=== PATIENT | male | born 1950 | race Caucasian/White ===

== ENCOUNTER 2016-11-30 11:02 | Outpatient (CLI) | payer OTHER ==
[~2016-11-30] VITALS: Ht 167.6 cm; Wt 69.5 kg
[2016-11-30 11:05] VITALS: BP 144/77; PULSE 88; RESP 18; Ht 167.6 cm; Wt 69.5 kg
--- NOTE | 2016-11-30 22:06 | CONS ---
Date/Time of Note Date/Time of Note DATE: 11/30/16 TIME: 21:30 Assessment/Plan Assessment/Plan Additional Assessment/Plan [facility] INITIAL INPATIENT CONSULTATION NOTE ASSESSMENT AND PLAN: A very-pleasant 65-year-old gentleman, well known to me from prior admissions since April 2016, with past medical history significant for obesity (BMI 24.7, previously 32.12 April 2016), bilateral knee and other joint pain, and hypertension, who was initially admitted to [facility] through ED on 04/07/2016 with signs and symptoms consistent with perforated viscus, s/p laparoscopic repair of perforated stomach, and ultimately unfortunately proven to be from gastric adenocarcinoma. He is doing remarkably well given his complicated course (see updated clinical summary). He is scheduled to be done with his chemo on 12/01/16. His most recent CT from Nov 2016 shows no new disease and no contraindication for surgical exploration and hopefully a subtotal, or if needed, a total gastrectomy. I explained the anatomy as well as the natural history and pathophysiology of this disease to the patient and family in detail and reviewed the reasoning behind my recommendations. Patient and family appeared to understand and wished to proceed with the plans. With above assessment, I've recommended the followin. Cont current management 2. Finish chemo course 3. Laparoscopic exploration with hopefully open gastrectomy late Dec 2016 Thank you very much for having me involved in the care of this very pleasant gentleman and his wonderful family. I will continue to follow him along with you closely and will be available to answer any questions at area code [phone]. TOTAL VISIT TIME: 45 minutes of which more than half was spent in [id number] discussion with the patient, discussions with family, as well as coordination of care between multiple physicians and providers. Disclaimer: Inadvertent spelling and grammatical errors are likely due to EHR/ dictation software use and do not reflect on the quality of delivered patient care. Also, please note that the electronic time recorded on this node does not necessarily reflect the actual time of the visit. PLACE OF SERVICE: [facility], [facility] DATE OF CONSULTATION: 11/30/2016 REASON FOR CONSULTATION: Gastric outlet obstruction REFERRING PHYSICIAN: Jarad Costa MD Dear Dr. Costa: Thank you very much for asking me to remain involved as a surgical nurse practitioner in the management of Mr. Armani Denny. UPDATED CLINICAL SUMMARY: The patient is a very pleasant 65-year-old gentleman well known to me from prior visit, with past medical history significant for obesity (BMI 32.7), bilateral knee and other joint pain, and hypertension, who was initially admitted to [facility] through ED on 04/07/2016 with 1 day history of abdominal pain associated with nausea and vomiting (4). Patient's emergency department workup included laboratory values that showed a normal white blood cell count of 9.8 and platelet count of 346, elevated creatinine at 1.25 and CO2 of 25. LFTs were normal. INR was 1.11. CT scan showed small foci of intra-abdominal free air compatible with bowel perforation. This was presumably in the region of the gastric antrum which was surrounded by some inflammatory changes and mildly enlarged lymph nodes. Underlying ulcer, gastritis or neoplasm wearing the differential. After consultation I decided to wait and not immediately operate on the patient given his normal hemodynamics and laboratory values. We were, however, sufficiently concerned for the patient's abdominal pain. On hospital day #2, the patient showed ongoing abdominal pain and elevation in white blood cell count to 17 and tachycardia. For this reason, patient underwent laparoscopic repair of perforated gastric ulcer with Sukh patch and abdominal lavage on 04/07/2016. Upper GI neg 04/11/16. Drain d/c'd 04/13/16. L hand cellulitis, improved with antimicrobial treatment and time in hospital. D/c'd home 04/20/16. Readmitted 05/02/16 with anemia. EGD x 2 showed ulcer dz and no obvious evidence for malignancy. D/c home 05/10; readmitted on 05/14 and d/c 05/16; fainted on way to see us in the office on 05/25, but neg ED w/u; readmitted for a third time since that operation on 07/15/16 for gastric outlet obstruction and GI bleeding. Ongoing issues with weight loss. Could not tolerate much oral intake. 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 EGD 07/25/16 showed small opening that made attempt at stenting possible. Started TPN 07/27/16. S/p endoscopic duodenal stent placement 07/28/16. Dx lap 08/01/16 showed no obvious evidence of widespread metastasis. Few areas biopsied and path showed no malignancy in the biopsied areas or in the cytology sample sent. Patient s/p 12 cycles of FOLFOX ending 12/01/16 (no Avastin; Her2 negative tumor). Patient developed loculated pneumothorax and empyema that was treated with Heimlich valve placement ( pathology from pleural fluid negative for malignant cells). Comorbidities: 1. Bilateral knee and other joint pain 2. Hypertension 3. Above mentioned gastric perforation 04/21 4. Above mentioned laparoscopic repair for gastric perforation 04/21 HISTORY OF PRESENT ILLNESS: Please see above summary. Today, I had a chance to visit with the patient and do a complete H&P. I also gathered some of my information through a careful review of the available data. Overall, patient reports doing well. He does not report any hematemesis or blood in the stool or urine. + flatus and BM. No reported chronic issues with constipation or diarrhea. No changes in hearing or vision, difficulty with breathing or swallowing, prior cardiopulmonary disease new skin rashes, neurologic, psychiatric, or psychologic problems. Patient does have history of joint pain, musculoskeletal disease as mentioned above. Patient described no sig abd pain. At my visit, the patient did not have any other major significant complaints. ALLERGIES: NO KNOWN DRUG ALLERGIES MEDICATIONS See EHR SOCIAL HISTORY: The patient lives with family. - Tob; - ETOH; - IVDU FAMILY HISTORY: There are no significant medical, surgical or oncologic issues in the family as reported by the patient or reflected in the chart. REVIEW OF SYSTEMS: No pertinent positives or negatives on an otherwise complete 14-point review of systems was negative. PHYSICAL EXAMINATION GENERAL: The patient appears to be a very pleasant gentleman of descent lying in bed, appearing stated age; BMI: 26.2 (previously 32.7 in April 2016) VITAL SIGNS: AVSS (please also see below) HEENT: Normocephalic and atraumatic. Extraocular muscles and hearing are grossly intact bilaterally and symmetrically. Sclerae are nonicteric. Oral cavity is clear; oral mucosa appear to be pink and moist. Dentition: fair. NECK: Supple. There is no lymphadenopathy or JVD. There is no submental, submandibular or supraclavicular lymphadenopathy. CHEST: Rises symmetrically with each breath; patient is breathing comfortably. There are no audible wheezes, rales or rhonchi on the gross exam. Heimlich valve in place. HEART: Pulse is regular and palpable on the right wrist. Capillary refill is normal. Carotid pulses are palpable bilaterally and symmetrically in the neck. EXTREMITIES: Lower extremities contain no pitting edema around the ankles bilaterally and symmetrically. ABDOMEN: Abdomen is soft, non-tender to palpation and non-distended. No evidence of ascites, organomegaly, caput medusae, engorged subcutaneous veins, or other abnormalities. There are mild peritoneal signs and guarding. SKIN: Appears to be pink and feels warm to touch. NEUROLOGIC: Awake, alert, and follows commands appropriately. LABORATORY DATA: See below IMAGING: See electronic chart. Please note that I've personally reviewed all pertinent available images and I agree in general with their overall reported findings. Consultation Date/Type/Reason Admit Date/Time Initial Consult Date Exam/Review of Systems Vital Signs Vitals Vital Signs Date Time Temp Pulse Resp B/P Pulse Ox O2 Delivery O2 Flow Rate FiO2 11/30/16 11:05 98.0 88 18 144/77 100 Room Air HELEN BRASWELL M.D. Nov 30, 2016 21:42
== END 2016-11-30 16:27 | disposition home or self-care (01) ==
LOC: HPC 11:02
PROVIDERS: ATTEND Transplant Surgery
DX: C16.9 Malignant neoplasm of stomach, unspecified (principal); M25.562 Pain in left knee; M25.561 Pain in right knee; R11.2 Nausea with vomiting, unspecified; I10 Essential (primary) hypertension; E66.9 Obesity, unspecified; Z68.32 Body mass index [BMI] 32.0-32.9, adult
CPT/HCPCS: G0463

== ENCOUNTER 2017-01-10 05:34 | Inpatient (IN) | payer OTHER ==
[2017-01-09 11:35] VITALS: BMI 24.2
[2017-01-10] VITALS (15 sets, daily range): BP systolic 115–147; BP diastolic 61–82; PULSE 7–123; RESP 10–18; Ht 167.6 cm; Wt 67.1 kg
[~2017-01-10] VITALS: Ht 167.6 cm; Wt 67.1 kg
[~2017-01-10 05:34] MED LIST: BUPIVACAINE 0.25%/EPI (SDV) 30 ML INJ INJ ONE; ONDA8TAB83 PO; PIPER-TAZO 3.375 GM IV (PMX) 100 ML IVPB ONE
[2017-01-10] MEDS ORDERED: BUPIVACAINE 0.25%/EPI (SDV) 30 ML INJ ONE (06:51)
[2017-01-10] MEDS ORDERED: EPHEDrine SULFATE 50 MG/5 ML SYG ONE ×2 (07:00→08:56)
[2017-01-10] MEDS ORDERED: ACETAMINOPHEN 1000 MG/100 ML IVPB ONE (07:00)
--- NOTE | 2017-01-10 07:27 | HPN ---
Date/Time of Note Date/Time of Note DATE: 01/10/17 TIME: 07:27 Interval H&P Admission Note Pt. seen H&P reviewed: No system changes Pt. seen H&P reviewed. No system changes (I attest that I have seen and examined the patient and reviewed the operation in detail, as well as its risks , benefits and alternatives of the operation). I attest that I have seen and examined the patient and reviewed in detail the operation, and its associated risks, benefits and alternative. I have answered all the patient's questions to the best of my ability and the patient wishes to proceed. Please refer to rest of electronic medical record for additional updates. HELEN BRASWELL M.D. Jan 10, 2017 07:27
[2017-01-10] MEDS ORDERED: ROCURONIUM 50 MG INJ ONE ×2 (07:41→11:08)
[2017-01-10] MEDS ORDERED: SUCCINYLCHOLINE CHLORIDE 100 MG/5 ML SYG IV ONE (07:41)
[2017-01-10] MEDS ORDERED: LIDOCAINE 2% (SDV) 5 ML INJ ONE (07:41)
[2017-01-10] MEDS ORDERED: PROPOFOL 20 ML ONE (07:41)
[2017-01-10] MEDS ORDERED: FENTAnyl 50 MCG/ML VIAL ONE ×2 (07:42→09:14)
[2017-01-10] MEDS ORDERED: MIDAZOLAM 1 MG/ML 2 ML INJ ONE (07:42)
[2017-01-10] MEDS ORDERED: PHENYLephrine (100 MCG/ML) 5ML SYG ONE (08:23)
[2017-01-10] MEDS ORDERED: ONDANSETRON 4 MG INJ ONE ×2 (08:36→12:46)
[2017-01-10] MEDS ORDERED: DEXAMETHASONE 4 MG/ML 1 ML INJ ONE (08:36)
[2017-01-10] MEDS ORDERED: ROPIVACAINE 0.2% 20 ML VIAL ONE ×2 (09:48→12:12)
[2017-01-10] MEDS ORDERED: HYDROmorphONE 2 MG/ML SYG ONE ×2 (10:44→12:08)
[2017-01-10] MEDS ORDERED: ALBUMIN HUMAN 5% 250 ML ONE (12:04)
[2017-01-10] MEDS ORDERED: FAMOTIDINE 20 MG INJ ONE (12:50)
[2017-01-10] MEDS ORDERED: GLYCOPYRROLATE 0.4 MG INJ ONE (12:55)
[2017-01-10] MEDS ORDERED: NEOSTIGMINE 3 MG/3 ML SYRINGE ONE (12:55)
[2017-01-10] MEDS ORDERED: ESMOLOL 10 ML ONE (13:29)
[2017-01-10] MEDS ORDERED: PROCHLORPERAZINE 10 MG INJ IV PRN (14:00)
[2017-01-10] MEDS ORDERED: NALOXONE (0.4 MG/ML) INJ IV PRN (14:00)
[2017-01-10] MEDS ORDERED: FENTAnyl 50 MCG/ML VIAL IV PRN (14:00)
[2017-01-10] MEDS ORDERED: LABETALOL HCL 20MG INJ IV PRN (14:00)
[2017-01-10] MEDS ORDERED: MEPERIDINE 25 MG INJ IV PRN (14:00)
[2017-01-10] MEDS ORDERED: ONDANSETRON 4 MG INJ IV PRN ×2 (14:00)
[2017-01-10] MEDS ORDERED: HYDROmorphONE (0.2 MG/ML) 10ML SYG IV PRN ×2 (14:00)
[2017-01-10] MEDS ORDERED: DIPHENHYDRAMINE 50 MG INJ IV PRN ×2 (14:00)
[2017-01-10] MEDS ORDERED: HYDROmorphONE 1 MG/ML SYG IV PRN ×3 (14:00→14:30)
[2017-01-10] MEDS ORDERED: hydrALAzine 20 MG INJ IV PRN (14:00)
[2017-01-10] MEDS ORDERED: DOCUSATE SODIUM 100 MG CAP PO PRN (14:30)
[2017-01-10] MEDS ORDERED: NA PHOSPHATE/BIPHOS 133 ML ENEMA PR PRN (14:30)
[2017-01-10] MEDS ORDERED: HYDROCODONE/APAP (5/325) TAB PO PRN ×2 (14:30)
[2017-01-10] MEDS ORDERED: BISACODYL 10 MG SUPP PR PRN (14:30)
[2017-01-10 14:38] LABS: ADD UMIC YES; URINE BILIRUBIN (Dip) NEGATIVE (NEGATIVE); URINE BLOOD (Dip) TRACE (NEGATIVE); URINE COLOR LT. YELLOW (YELLOW); URINE GLUCOSE (Dip) NEGATIVE (NEGATIVE); URINE KETONES (Dip) NEGATIVE (NEGATIVE); URINE LEUKOCYTE ESTERASE (Dip) 1+ (NEGATIVE); URINE NITRITE (Dip) NEGATIVE (NEGATIVE); URINE TOTAL PROTEIN (Dip) NEGATIVE (NEGATIVE); URINE UROBILINOGEN (Dip) 0.2 E.U./dL (0.1-1.0)
[2017-01-10 14:46] LABS: ADD SCAN DIFF NO
[2017-01-10 14:50] LABS: BASOPHILS % 0.2 % (0.0-2.0); HEMATOCRIT 39.4 % (42.0-52.0); HEMOGLOBIN 12.8 g/dl (14.0-18.0); LYMPHOCYTES % 6.2 % (15.0-51.0); MEAN CORPUSCULAR HEMOGLOBIN 30.1 pg (29.0-33.0); MEAN CORPUSCULAR HGB CONC 32.5 g/dl (32.0-37.0); MEAN CORPUSCULAR VOLUME 92.7 fl (82.0-101.0); MEAN PLATELET VOLUME 9.2 fl (7.4-10.4); MONOCYTE # 0.7 10^3/ul (0.3-0.9); MONOCYTES % 4.4 % (0.0-11.0); NEUTROPHIL # 13.8 10^3/ul (1.6-7.5); NEUTROPHILS % 88.7 % (39.0-77.0); PLATELET COUNT 169 10^3/UL (140-415); RED BLOOD COUNT 4.25 10^6/ul (4.70-6.10); RED CELL DISTRIBUTION WIDTH 15.1 % (11.5-14.5); WHITE BLOOD COUNT 15.6 10^3/ul (4.8-10.8)
[2017-01-10 14:58] LABS: ALBUMIN 3.3 g/dl (3.3-4.9)
[2017-01-10 14:59] LABS: INR 1.09; PROTIME 14.1 Sec (12.2-14.2); PT RATIO 1.1
[2017-01-10 15:00] LABS: PARTIAL THROMBOPLASTIN TIME 27.5 Sec (25.0-35.0)
[2017-01-10 15:01] LABS: ALBUMIN/GLOBULIN RATIO 1.17; BILIRUBIN,INDIRECT 0.3 mg/dl (0-1.1); BILIRUBIN,TOTAL 0.3 mg/dl (0.2-1.3); TOTAL PROTEIN 6.1 g/dl (6.1-8.1)
[2017-01-10 15:05] LABS: CALCIUM 8.6 mg/dl (8.4-10.2); CREATININE 0.68 mg/dl (0.61-1.24); POTASSIUM 3.8 mmol/L (3.5-5.1)
--- NOTE | 2017-01-10 15:39 | OPR ---
[facility] INPATIENT OPERATIVE NOTE PLACE OF SERVICE: [facility] DATE OF SURGERY: 01/10/17 PREOPERATIVE DIAGNOSIS: 1. Gastric malignancy, s/p neoadjuvant chemotherapy 2. Bilateral knee and other joint pain 3. Hypertension 4. Gastric perforation 04/21 5. Laparoscopic repair for gastric perforation 04/21 POSTOPERATIVE DIAGNOSIS: 1. Gastric malignancy, s/p neoadjuvant chemotherapy 2. Bilateral knee and other joint pain 3. Hypertension 4. Gastric perforation 04/21 5. Laparoscopic repair for gastric perforation 04/21 OPERATION: 1. Laparoscopic exploration with laparoscopic wedge liver biopsy x2 as well as falciform ligament biopsy. 2. Open subtotal gastrectomy. 3. Celiac artery lymph node dissection. 4. Hepatic artery lymph node biopsy. 5. Celiac artery lymph node biopsy. 6. Hepatic artery lymph node biopsy. 7. Splenic artery lymph node biopsy. 8. Abdominal lavage. 9. Omentectomy. 10. Lysis of adhesions. SURGEON: Helen Chavis M.D. PECAN CLEANER: [place] [place] ANESTHESIA: General endotracheal tube anesthesia ANESTHESIOLOGIST: Wesley Montana M.D. BRIEF SUMMARY: An otherwise uncomplicated laparoscopic exploration with biopsy, followed by radical subtotal gastrectomy was performed with findings of malignancy in distal stomach Updated Clinical Summary: The patient is a very pleasant 65-year-old gentleman well known to me from prior visit, with past medical history significant for obesity (BMI 32.7), bilateral knee and other joint pain, and hypertension, who was initially admitted to [facility] through ED on 04/07/2016 with 1 day history of abdominal pain associated with nausea and vomiting (4). Patient's emergency department workup included laboratory values that showed a normal white blood cell count of 9.8 and platelet count of 346, elevated creatinine at 1.25 and CO2 of 25. LFTs were normal. INR was 1.11. CT scan showed small foci of intra-abdominal free air compatible with bowel perforation. This was presumably in the region of the gastric antrum which was surrounded by some inflammatory changes and mildly enlarged lymph nodes. Underlying ulcer, gastritis or neoplasm wearing the differential. After consultation I decided to wait and not immediately operate on the patient given his normal hemodynamics and laboratory values. We were, however, sufficiently concerned for the patient's abdominal pain. On hospital day #2, the patient showed ongoing abdominal pain and elevation in white blood cell count to 17 and tachycardia. For this reason, patient underwent laparoscopic repair of perforated gastric ulcer with Sukh patch and abdominal lavage on 04/07/2016. Upper GI neg 04/11/16. Drain d/c'd 04/13/16. L hand cellulitis, improved with antimicrobial treatment and time in hospital. D/c'd home 04/20/16. Readmitted 05/02/16 with anemia. EGD x 2 showed ulcer dz and no obvious evidence for malignancy. D/c home 05/10; readmitted on 05/14 and d/c 05/16; fainted on way to see us in the office on 05/25, but neg ED w/u; readmitted for a third time since that operation on 07/15/16 for gastric outlet obstruction and GI bleeding. Ongoing issues with weight loss. Could not tolerate much oral intake. 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 EGD 07/25/16 showed small opening that made attempt at stenting possible. Started TPN 07/27/16. S/p endoscopic duodenal stent placement 07/28/16. Dx lap 08/01/16 showed no obvious evidence of widespread metastasis. Few areas biopsied and path showed no malignancy in the biopsied areas or in the cytology sample sent. Patient s/p 12 cycles of FOLFOX ending 12/01/16 (no Avastin; Her2 negative tumor). Patient developed loculated pneumothorax and empyema that was treated with Heimlich valve placement ( pathology from pleural fluid negative for malignant cells). . BRIEF HISTORY: A very-pleasant 65-year-old gentleman, well known to me from prior admissions since April 2016, with past medical history significant for obesity (BMI 24.7, previously 32.12 April 2016), bilateral knee and other joint pain, and hypertension, who was initially admitted to [facility] through ED on 2015 with signs and symptoms consistent with perforated viscus, s/p laparoscopic repair of perforated stomach, and ultimately unfortunately proven to be from gastric adenocarcinoma. He is doing remarkably well given his complicated course (see updated clinical summary). He is scheduled to be done with his chemo on 12/01/16. His most recent CT from Nov 2016 shows no new disease and no contraindication for surgical exploration and hopefully a subtotal, or if needed, a total gastrectomy. I explained the anatomy as well as the natural history and pathophysiology of this disease to the patient and family in detail and reviewed the reasoning behind my recommendations. After careful consideration of all the risks, benefits, and alternatives, the patient and family appeared to understand those risks and wished to proceed with surgery. For a detailed report of my consultation with patient and family, please refer to my separate consultation note. STATEMENT OF THE INFORMED CONSENT: The patient and family appeared to understand the risks of the operation to include, but not be limited to risk of postoperative pain and scar tissue, possible infection or bleeding requiring other interventions such as opening the wound, placement of drainage catheters, or other operative interventions; possible injury to surrounding to structures including bowel, bladder, bile duct, or blood vessels, or solid organs such as liver, kidney, or pancreas requiring other interventions or procedures; possible leakage of bowel from anastomotic sites or suture lines causing significant increase in morbidity and mortality and requiring multiple interventions including but not limited to, placement of drainage catheters, imaging studies, as well as operative interventions; possible other source of sepsis such as urinary tract infections or pneumonias, or other sources of potentially life threatening problems such as deep venous thrombus formation causing pulmonary embolism, myocardial arrhythmias and infarctions, and even . We also briefly discussed the potential need to receive blood products and their potential complications of blood transfusion reactions, transmission of infections, or other complications. After careful consideration of all their options, the patient and family appeared to understand and wished to proceed with surgery. OPERATIVE DETAILS: After obtaining informed consent, the patient was brought into the operating room and was placed in a normal supine position where successful general endotracheal tube anesthesia was performed. Note that an epidural was placed by the anesthesiologist as well. The patient's abdominal skin was prepped and draped in the usual sterile fashion and then we called a surgical time-out where patient's identification, date of , nature of the operation, the presence of needed equipment and any other concerns were addressed and agreed upon by all members of the operating room team. I then placed a 5 mm skin incision in the left upper quadrant and introduced a 5 mm [employer] trocar into the peritoneal space, visualizing all the layers of the abdominal wall as we entered using direct entry technique. There was no indication of any injury to underlying structures. We insufflated the abdominal cavity to a maximum pressure of 15 mmHg. Initial inspection of the abdominal cavity showed a few areas that were suspicious and needed to be biopsied. For this reason, I placed another two 5 mm trocars, one in the infraumbilical area and one in the right upper quadrant, all under direct visualization and after injection of the sites with 0.25% Marcaine with epinephrine. With our instruments in place, we had the ability to do a more full inspection of the abdominal cavity. There were some omental adhesions onto the anterior abdominal wall that we lysed using a cautery. This allowed excellent visualization of the entire abdominal cavity laparoscopically. The left lobe of the liver was already adhesed on to the area of the diaphragm and for this reason, we could see that area underneath it very well. The stomach appeared to be pliable. We could sense the presence of the stent in the pylorus. There were a few spots, 1 on segment 3 of the liver and 1 on segment 4B of the liver that appeared to be a bit suspicious. I used cold scissors to do wedge liver biopsies of both of these areas and achieved adequate hemostasis using cautery. We also had a mass in the falciform ligament which I dissected using a combination of cold scissors as well as cautery. All 3 samples were removed laparoscopically from the abdominal cavity, and we performed frozen sections on the specimens with the help of Dr. Bone from Department of pathology. Note that I scrubbed out of the case after making sure that the patient was stable and adequate hemostasis had been achieved and reviewed the slides with Dr. Bone. We both agreed that these were benign lesions corresponding to foreign giant body reactions, perhaps from the patient's time of perforation approximately a year ago. I, therefore, returned to the operating room and again found the patient to be in fair, stable condition. After scrubbing back sterilely, we removed our laparoscopic equipment and converted the operation to an open operation by placing a bilateral subcostal incision using scalpel to go through the skin and then cautery to go through the subcutaneous fat and the fascia. We then placed a Jane retractor and had excellent visualization and access to the abdominal cavity. We then performed a very meticulous exploration of the abdominal cavity with inspection of the surface of the liver as well as running the bowel from the ligament of Treitz to the ileocecal valve and inspecting the ascending, transverse, descending, and sigmoid colon into the rectum. The omentum was also inspected and the area of ligament of Treitz was then inspected. Other than the lymphadenopathy that we had seen on the CT scan right above the pancreas on the first portion of the duodenum, we did not find any other concerning evidence for metastatic disease. For this reason, I decided to go ahead with the planned operation of subtotal gastrectomy. We, therefore, used cautery to get into the gastrocolic ligament and then used LigaSure device to divide the gastrocolic ligament between the stomach and the transverse colon. We did this proximally to a suitable spot and then performed the same procedure distally. After very meticulous dissection approaching it on both ends, we were able to completely disconnect the gastrocolic ligament and separate the stomach from the transverse colon. We made sure that the middle colic artery is undisturbed. A small rent in the transverse colon mesentery was repaired using running 3-0 Vicryl suture. Other than that, we were able to completely separate in the plane between the stomach and the colon , the 2 organs. We also were able to separate the tissue that was between the stomach and the anterior aspect of the pancreas. We continued our dissection distally towards the lymph node that appeared to be malignant, but it was considered part of the specimen and that was going to be removed and dissected this completely off of the anterior aspect of the pancreas. Part of this lymph node was fairly close to the course of the gastroduodenal artery that was going over the body of the pancreas and for this reason, I used one firing of the vascular load of the TA stapler and transected the lymph node from the underlying pancreas tissue making sure that there is adequate margin left between these 2 structures. We used a clamp to clamp the specimen side and then used a 4-0 Prolene suture to achieve hemostasis on that front. At this point, we concentrated our efforts on the leonidas hepatis and gained access through the gastrohepatic ligament using cautery. We then performed meticulous dissection in order to completely separate the distal portion of the stomach from the pancreas and the leonidas hepatis region. I did gain access circumferentially around the first portion of the duodenum and isolated this area using an umbilical tape. We then continued our dissection proximally on the lesser curvature until we came to a point where I felt it was distant enough from the area of the tumor that we could perform a gastrectomy. We did this using 3 firings of the green load of the hand-held 75 mm COCO stapler. This went without any difficulty and there was automotive engineer rows of sean that were cutting across the stomach. Once the proximal stomach was transected, we continued our meticulous dissection to completely mobilize the distal stomach and the first portion of the duodenum. Note that the stent appeared to be fairly imbedded within the stomach tissue and we had to make our transection distal to the stent and the tip of the stent was in the first portion of duodenum. I made sure that the portal structures that were critical were left behind and took down enough of the venous structures onto the pyloric channel area in the first portion of the duodenum in order to be able to transect the first portion of duodenum using 1 firing of the blue load of the 75 mm hand- held COCO stapler. This again went without any difficulty and we delivered the specimen out and sent it to pathology with a suture marking the proximal border of the stomach. Gross inspection of this area showed widely clear proximal and distal margins and the tumor was found near the pyloric channel. I then reinforced the first portion of the duodenum staple line using interrupted 3-0 silk sutures in a Lembert style. We then continued our dissection to find the celiac artery lymph node and removed this and sent it as a separate specimen. We repeated this process on the splenic artery and removed a farm loan representative lymph node. Note that there was no malignant appearing lymph nodes in any of these areas. We then made sure that there was adequate hemostasis prior to placing a gastrojejunostomy in a standard stapled fashion side to side, functional end-to-end at a point approximately 60 cm distal to the ligament of Treitz using 1 firing of the blue load of the handheld COCO stapler that we placed through separate enterotomies that we had created using cautery. We then closed the enterotomy site after making sure that these staple lines were automotive engineer and there was adequate hemostasis using running 4-0 PDS suture, reinforced by interrupted 3-0 Lembert silk sutures on FH needles. We also placed a suture at the angle of sorrow and closed the Abdalla's defect site using one 3-0 silk suture as well. All this went without any difficulty. We made sure that the tip of the NG tube was in the proximal stomach prior to performing abdominal lavage using copious amounts of normal saline (at least 2 liters of normal saline) and suctioning off the excess irrigant to clear drainage. We then closed the fascia after removal of all our equipment from the abdominal cavity using running #1 PDS suture followed by washing the wounds with copious amounts of normal saline and then reapproximating the skin using skin sean. Light dressing was then applied. At the end of the operation, both the sponge count and needle count were reportedly correct x2. The patient tolerated the procedure without any reported complications. ESTIMATED BLOOD LOSS: Less than 50 mL. BLOOD OR BLOOD PRODUCT TRANSFUSIONS: None to my knowledge. SPECIMENS: 1. Wedge liver biopsy segment 3 2. Wedge liver biopsy segment 4B 3. Falciform ligament biopsy 4. Hepatic artery lymph node biopsy 5. Celiac artery lymph node biopsy 6. Splenic artery lymph node biopsy. 7. Omentectomy (x2 pieces) COMPLICATIONS: None. DISPOSITION: Recovery area. Disclaimer: Inadvertent spelling and grammatical errors are likely due to EHR/ Dragon use. They do not reflect on the quality of the actual delivered patient care. Dictated By: HELEN ELLIS/ROSELYN Conf#: [id number] DID#: [id number] MTDD
[2017-01-10 15:49] LABS: BACTERIA,URINE RARE; SQUAMOUS EPITHELIAL CELL,UR RARE
--- NOTE | 2017-01-10 16:01 | HP ---
DATE OF ADMISSION: 01/10/2017 HISTORY OF PRESENT ILLNESS: The patient is a 66-year-old very pleasant gentleman known to me from previous admission. The patient is with a history of laparoscopic repair of perforated ulce r in April of 2016. The patient was admitted in July of 2016 for gastric outlet obstruction and was evaluated by Dr. Garrett in gastroenterology consultation. The patient underwent EGD with of gastric ulcer with biopsy positive for gastric adenocarcinoma. The patient underwent endoscopic duodenal stent placement. The patient also underwent a diagnostic laparoscopy by Dr. Chavis with n o obvious evidence for widespread metastasis. The patient was also evaluated and followed by Dr. Mercy srinivasan, and the patient started on chemotherapy, received FOLFOX. The patient also developed loculated pneumothorax and empyema and the patient underwent PleurX catheter placement which was changed to a Heimlich valve. The patient also has a history of atrial fibrillation with rapid ventricular respon se, however, it converted to sinus rhythm during the hospital stay. The patient has completed chemot herapy which was scheduled to be done on 12/01/2016 and patient was reevaluated by Dr. Chavis and wa s brought to the hospital and underwent subtotal gastrectomy. The patient will be admitted for furt her evaluation and management to the medical surgical floor. Currently, the patient is awake, alert , complains of mild postoperative pain. Denies any nausea, vomiting, denies any fever or chills. PAST MEDICAL HISTORY AND PAST SURGICAL HISTORY: Per HPI. Also the patient has a history of obesity, hypertension, paroxysmal atrial fibrillation in addition to what is mentioned in HPI. FAMILY HISTORY: Noncontributory. SOCIAL HISTORY: The patient lives with family. The patient denies any history of alcohol use, any tobacco use, any illicit drug use. ALLERGIES: NO KNOWN ALLERGIES. HOME MEDICATIONS: Include Zofran p.r.n. for nausea. REVIEW OF SYSTEMS: A 12-point review of systems is negative unless it was mentioned in the HPI. PHYSICAL ASSESSMENT: GENERAL: Well-developed, well-nourished male in no acute distress. VITAL SIGNS: Temperature is 98.9, pulse is 92, blood pressure 119/68, respiratory rate 14, oxygen s aturation 100% on room air. HEENT: Head is atraumatic, normocephalic. Pupils equal, round, reactive to light and accommodation . Oral mucosa is pink and moist. The patient has a right naris NG tube. NECK: Supple, no cervical lymphadenopathy, no thyromegaly. CHEST: Clear bilaterally. There is no rhonchi, wheezes, rales noted. The patient has a right ches t Perm-A-Cath. CARDIOVASCULAR: Normal S1, S2. No murmurs, gallops, clicks, rubs noted. ABDOMEN: Status post surgery with a dry, clean and intact dressing. GENITOURINARY: The patient has a Mann catheter with yellow urine. EXTREMITIES: There is no edema, clubbing, cyanosis. Pulses equal bilaterally 2+. SKIN: No rash, petechiae noted. NEUROLOGIC: Patient is awake, alert and oriented x3. No focal deficits noted. Motor strength of 5 /5 in all extremities. ASSESSMENT AND PLAN: 1. Gastric adenocarcinoma status post subtotal gastrectomy by Dr. Chavis. 2. Hypertension by history. 3. Paroxysmal atrial fibrillation by history. PLAN: We are going to admit the patient to medical/surgical floor. Continue IV fluids. Continue D ilaudid p.r.n. for pain and Zofran p.r.n. for nausea. Monitor electrolytes. Continue Protonix for peptic ulcer disease. Continue heparin for deep venous thrombosis prophylaxis. Further recommendat ions based on clinical course. Plan of care discussed with Dr. White. Dictated By: JUAN JOSE JEREZ [employer]BER for PRISCILA WHITE MD SR/NTS Conf#: [id number] DID#: [id number]
[2017-01-10] MEDS: D5W-0.45 NACL + KCL 20 MEQ 1,000 ML IV SCH ×2 (16:10→19:35)
[2017-01-10 16:19] LABS: PHOSPHORUS 3.9 mg/dl (2.5-4.9)
[2017-01-10 16:20] LABS: MAGNESIUM 1.8 mg/dl (1.7-2.5)
[2017-01-11] MEDS: D5W-0.45 NACL + KCL 20 MEQ 1,000 ML IV SCH ×5 (00:08→22:46)
[2017-01-11 00:11] VITALS: BP 110/57; RESP 18
[2017-01-11] MEDS: FENTAnyl 2MCG/ML-ROPIV 0.2% 100 ML BAG EPI SCH ×3 (00:13→17:26)
[2017-01-11 05:02] LABS: ADD SCAN DIFF NO
[2017-01-11 05:14] LABS: BASOPHILS % 0.2 % (0.0-2.0); EOSINOPHILS % 0.1 % (0.0-7.0); HEMATOCRIT 34.6 % (42.0-52.0); HEMOGLOBIN 11.1 g/dl (14.0-18.0); LYMPHOCYTES # 1.9 10^3/ul (0.8-2.9); LYMPHOCYTES % 11.7 % (15.0-51.0); MEAN CORPUSCULAR HEMOGLOBIN 30.3 pg (29.0-33.0); MEAN CORPUSCULAR HGB CONC 32.1 g/dl (32.0-37.0); MEAN CORPUSCULAR VOLUME 94.5 fl (82.0-101.0); MEAN PLATELET VOLUME 9.8 fl (7.4-10.4); MONOCYTE # 0.7 10^3/ul (0.3-0.9); MONOCYTES % 4.3 % (0.0-11.0); NEUTROPHIL # 13.8 10^3/ul (1.6-7.5); NEUTROPHILS % 83.1 % (39.0-77.0); PLATELET COUNT 159 10^3/UL (140-415); RED BLOOD COUNT 3.66 10^6/ul (4.70-6.10); RED CELL DISTRIBUTION WIDTH 15.3 % (11.5-14.5); WHITE BLOOD COUNT 16.7 10^3/ul (4.8-10.8)
[2017-01-11 05:24] LABS: POTASSIUM 4.8 mmol/L (3.5-5.1)
[2017-01-11 05:26] LABS: CREATININE 0.66 mg/dl (0.61-1.24)
[2017-01-11 05:27] LABS: CALCIUM 8.3 mg/dl (8.4-10.2); MAGNESIUM 1.9 mg/dl (1.7-2.5); PHOSPHORUS 3.6 mg/dl (2.5-4.9)
[2017-01-11] MEDS: PANTOPRAZOLE 40 MG INJ IV SCH (05:34)
[2017-01-11 07:00] VITALS: BP 126/69; RESP 20
[2017-01-11] MEDS: HEPARIN 5,000 UNIT/0.5 ML SYG SC SCH ×3 (08:52→21:13)
[2017-01-11 11:00] VITALS: BP 126/71; RESP 18
--- NOTE | 2017-01-11 13:36 | CONS ---
Date/Time of Note Date/Time of Note DATE: 01/11/17 TIME: 13:27 Assessment/Plan Assessment/Plan Chief Complaint/Hosp Course 66 yo M with gastric CA POD 1 s/p exploratory laparoscopy, open subtotal gastrectomy -thoracic epidural in place, site c/d/i -adequate coverage, good pain control at continuous only 10 ml/h fent 2 mcg/ml + 0.2% Ropiv -may give heparin SC while epidural in place -IF d/c epidural tomorrow am, please hold am heparin SC dose. Problems: Consultation Date/Type/Reason Admit Date/Time Jan 10, 2017 at 05:34 Initial Consult Date January 10, 2017 Type of Consultation: Anesthesia pain Reason for Consultation postop pain management 24 HR Interval Summary Free Text/Dictation 66 yo M with h/o gastric CA s/p radiation and chemo tx, c/b L chronic empyema s/ p chest tube, POD 1 s/p exploratory laparoscopy, wedge liver biopsies, falciform ligament biopsy, open subtotal gastrectomy, omentectomy. thoracic epidural placed pre-induction for postop pain control Constitutional: no complaints Exam/Review of Systems Vital Signs Vitals Vital Signs Date Time Temp Pulse Resp B/P Pulse Ox O2 Delivery O2 Flow Rate FiO2 01/11/17 11:00 97.9 82 18 126/71 100 01/10/17 18:30 Room Air Intake and Output 01/10/17 01/10/17 01/11/17 15:00 23:00 07:00 Intake Total 250 ml 10 ml 1320 ml Output Total 500 ml 400 ml 1400 ml Balance -250 ml -390 ml -80 ml Exam denies pain, incision well covered, has good strength and sensation BLE. Constitutional: alert, oriented, well developed Psych: no complaints Head: atraumatic, normocephalic Eyes: EOMI, PERRL, nl conjunctiva, nl sclera ENMT: mucosa pink and moist, nl external ears & nose, nl lips & teeth, nl nasal mucosa & septum, other (+ NGT, with thick dark drainage) Neck: non-tender, supple Respiratory: clear to auscultation, normal air movement Cardiovascular: nl pulses, regular rate and rhythm Musculoskeletal: nl extremities to inspection, nl gait and stance Extremities: normal pulses Neurological: BACK SHOE CUTTER II-XII intact, nl mental status, nl speech, nl strength Skin: nl turgor, rash or lesions Results Result Diagram: 01/11/17 0420 01/11/17 0420 Results 24 hrs Laboratory Tests Test 01/10/17 13:40 01/10/17 14:30 01/11/17 04:20 Urine Bacteria RARE Urine Bilirubin NEGATIVE Urine Clarity CLEAR Urine Color LT. YELLOW Urine Glucose NEGATIVE Urine Hemoglobin TRACE Urine Ketones NEGATIVE Urine Leukocyte Esterase 1+ H Urine Microscopic RBC 2-5 Urine Microscopic WBC 10-25 Urine Nitrite NEGATIVE Urine Specific [place] 1.010 Urine Squamous Epithelial Cells RARE Urine Total Protein NEGATIVE Urine Urobilinogen 0.2 E.U./dL Urine pH 7.0 Activated Partial Thromboplast Time 27.5 Alanine Aminotransferase (ALT/SGPT) 42 Albumin 3.3 Albumin/Globulin Ratio 1.17 Alkaline Phosphatase 82 Anion Gap 17 H 14 Aspartate Amino Transf (AST/SGOT) 51 H Basophils # 0.0 0.0 Basophils % 0.2 0.2 Blood Urea Nitrogen 10 10 Calcium Level 8.6 8.3 L Carbon Dioxide Level 26 29 Chloride Level 104 103 Creatinine 0.68 0.66 Direct Bilirubin 0.00 Eosinophils # 0.0 0.0 Eosinophils % 0.0 0.1 Globulin 2.80 Glucose Level 148 102 # Hematocrit 39.4 #L 34.6 L Hemoglobin 12.8 #L 11.1 L INR International Normalized Ratio 1.09 Indirect Bilirubin 0.3 Lymphocytes # 1.0 1.9 Lymphocytes % 6.2 L 11.7 L Magnesium Level 1.8 1.9 Mean Corpuscular Hemoglobin 30.1 30.3 Mean Corpuscular Hemoglobin Concent 32.5 32.1 Mean Corpuscular Volume 92.7 94.5 Mean Platelet Volume 9.2 # 9.8 Monocytes # 0.7 0.7 Monocytes % 4.4 4.3 Neutrophils # 13.8 H 13.8 H Neutrophils % 88.7 H 83.1 H Nucleated Red Blood Cells # 0.0 0.0 Nucleated Red Blood Cells % 0.0 0.0 Phosphorus Level 3.9 3.6 Platelet Count 169 159 Potassium Level 3.8 4.8 Prothrombin Time 14.1 Prothrombin Time Ratio 1.1 Red Blood Count 4.25 L 3.66 L Red Cell Distribution Width 15.1 #H 15.3 H Sodium Level 143 141 Total Bilirubin 0.3 Total Protein 6.1 White Blood Count 15.6 #H 16.7 H Medications Medications Current Medications Hydromorphone HCl (Dilaudid) 0.2 mg Q2H PRN IV PAIN LEVEL 1-5; Start 01/10/17 at 14:00 Diphenhydramine HCl (Benadryl) 25 mg Q4H PRN IV PRURITUS; Start 01/10/17 at 14: 00 Ondansetron HCl (Zofran Inj) 4 mg Q6H PRN IV NAUSEA AND/OR VOMITING; Start 01/10 at 14:00 Naloxone HCl 0.2 mg 0.2 mg Q2M PRN IV FOR RESP RATE 8 OR LESS; Start 01/10/17 at 14:00 Potassium Chloride/Dextrose/ Sod Cl (D5-1/2ns + KCl 20 Meq) 1,000 ml @ 100 mls/ hr Q10H IV Last administered on 01/11/17 02:24; Admin Dose 100 MLS/HR; Start at 14:08 Acetaminophen/ Hydrocodone Bitart ([place] (5/325)) 1 tab Q4H PRN PO PAIN LEVEL 4 -7; Start 01/10/17 at 14:30 Acetaminophen/ Hydrocodone Bitart ([place] (5/325)) 2 tab Q4H PRN PO PAIN LEVEL 7 -10; Start 01/10/17 at 14:30 Hydromorphone HCl (Dilaudid) 0.5 mg Q2 PRN IV PAIN; Start 01/10/17 at 14:30 Hydromorphone HCl (Dilaudid) 1 mg Q2 PRN IV PAIN; Start 01/10/17 at 14:30 Docusate Sodium (Colace) 100 mg BID PRN PO CONSTIPATION; Start 01/10/17 at 14:30 Bisacodyl (Dulcolax Supp) [address] CONSTIPATION; Start 01/10/17 at 14:30 Sodium Biphosphate/ Sodium Phosphate (Fleet Enema) [address] CONSTIPATION; Start 01/10/17 at 14:30 Pantoprazole (Protonix Iv) 40 mg DAILY@06 IV Last administered on 01/11/17 05: 34; Admin Dose 40 MG; Start 01/11/17 at 06:00 Heparin Sodium (Porcine) (Heparin (5000 Units/0.5 ml)) 5,000 unit BID SC Last administered on 3/8/17at 11:32; Admin Dose 5,000 UNIT; Start 01/11/17 at 09:00 Docusate Sodium (Colace) 100 mg BID PO ; Start 01/12/17 at 21:00 Sodium Biphosphate/ Sodium Phosphate (Fleet Enema) [address] ; Start at 21:00 Bisacodyl (Dulcolax Supp) [address] ; Start 01/12/17 at 21:00 BRITANY ARREDONDO MD Jan 11, 2017 13:36
[2017-01-11 16:00] VITALS: BP 127/60; RESP 20
--- NOTE | 2017-01-11 16:57 | PN ---
Date/Time of Note Date/Time of Note DATE: 01/11/17 TIME: 16:51 Assessment/Plan VTE Prophylaxis VTE Prophylaxis Intervention: heparin Lines/Catheters IV Catheter Type (from Nrs): Saline Lock Central line still needed: Yes Urinary Cath still in place: Yes Reason Cath still needed: urinary retention Assessment/Plan Chief Complaint/Hosp Course ASSESSMENT AND PLAN: 1. 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 Chavis. Patient is currently on epidural analgesia. Advance diet per surgery. Continue IV fluids monitor electrolytes. Continue Dilaudid p.r.n. for pain and Zofran p.r.n. for nausea. 2. Hypertension by history. Patient is currently normotensive. 3. Paroxysmal atrial fibrillation by history. Continue Protonix for peptic ulcer disease. Continue heparin for deep venous thrombosis prophylaxis, except for hold heparin in a.m. for epidural catheter DC. Further recommendations based on clinical course. Plan of care discussed with Dr. Reese. Problems: Subjective 24 Hr Interval Summary Free Text/Dictation Patient's pain is well controlled, continued on epidural analgesia. NG tube removed. Patient denies any nausea vomiting. Exam/Review of Systems Vital Signs Vitals Vital Signs Date Time Temp Pulse Resp B/P Pulse Ox O2 Delivery O2 Flow Rate FiO2 01/11/17 16:00 98.2 76 20 127/60 99 01/10/17 18:30 Room Air Intake and Output 01/10/17 01/10/17 01/11/17 15:00 23:00 07:00 Intake Total 250 ml 10 ml 1320 ml Output Total 500 ml 400 ml 1400 ml Balance -250 ml -390 ml -80 ml Exam PHYSICAL ASSESSMENT: GENERAL: Well-developed, well-nourished male in no acute distress. HEENT: Head is atraumatic, normocephalic. PERRLA. NECK: Supple, no cervical lymphadenopathy, no thyromegaly. CHEST: Clear bilaterally. There is no rhonchi, wheezes, rales noted. The patient has a right chest Perm-A-Cath. CARDIOVASCULAR: Normal S1, S2. No murmurs, gallops, clicks, rubs noted. ABDOMEN: Status post surgery with a dry, clean and intact dressing. GENITOURINARY: The patient has a Mann catheter with yellow urine. EXTREMITIES: There is no edema, clubbing, cyanosis. Pulses equal bilaterally 2 +. SKIN: No rash, petechiae noted. NEUROLOGIC: Patient is awake, alert and oriented x3. Results Result Diagram: 01/11/17 0420 01/11/17 042 Results 24 hrs Laboratory Tests Test 01/11/17 04:20 Anion Gap 14 Basophils # 0.0 Basophils % 0.2 Blood Urea Nitrogen 10 Calcium Level 8.3 L Carbon Dioxide Level 29 Chloride Level 103 Creatinine 0.66 Eosinophils # 0.0 Eosinophils % 0.1 Glucose Level 102 # Hematocrit 34.6 L Hemoglobin 11.1 L Lymphocytes # 1.9 Lymphocytes % 11.7 L Magnesium Level 1.9 Mean Corpuscular Hemoglobin 30.3 Mean Corpuscular Hemoglobin Concent 32.1 Mean Corpuscular Volume 94.5 Mean Platelet Volume 9.8 Monocytes # 0.7 Monocytes % 4.3 Neutrophils # 13.8 H Neutrophils % 83.1 H Nucleated Red Blood Cells # 0.0 Nucleated Red Blood Cells % 0.0 Phosphorus Level 3.6 Platelet Count 159 Potassium Level 4.8 Red Blood Count 3.66 L Red Cell Distribution Width 15.3 H Sodium Level 141 White Blood Count 16.7 H Medications Medications Current Medications Hydromorphone HCl (Dilaudid) 0.2 mg Q2H PRN IV PAIN LEVEL 1-5; Start 01/10/17 at 14:00 Diphenhydramine HCl (Benadryl) 25 mg Q4H PRN IV PRURITUS; Start 01/10/17 at 14: 00 Ondansetron HCl (Zofran Inj) 4 mg Q6H PRN IV NAUSEA AND/OR VOMITING; Start 01/10 at 14:00 Naloxone HCl 0.2 mg 0.2 mg Q2M PRN IV FOR RESP RATE 8 OR LESS; Start 01/10/17 at 14:00 Potassium Chloride/Dextrose/ Sod Cl (D5-1/2ns + KCl 20 Meq) 1,000 ml @ 100 mls/ hr Q10H IV Last administered on 01/11/17t 02:24; Admin Dose 100 MLS/HR; Start at 14:08 Acetaminophen/ Hydrocodone Bitart ([place] (5/325)) 1 tab Q4H PRN PO PAIN LEVEL 4 -7; Start 01/10/17 at 14:30 Acetaminophen/ Hydrocodone Bitart ([place] (5/325)) 2 tab Q4H PRN PO PAIN LEVEL 7 -10; Start 01/10/17 at 14:30 Hydromorphone HCl (Dilaudid) 0.5 mg Q2 PRN IV PAIN; Start 01/10/17 at 14:30 Hydromorphone HCl (Dilaudid) 1 mg Q2 PRN IV PAIN; Start 01/10/17 at 14:30 Docusate Sodium (Colace) 100 mg BID PRN PO CONSTIPATION; Start 01/10/17 at 14:30 Bisacodyl (Dulcolax Supp) 10 mg BID PRN [place] CONSTIPATION; Start 01/10/17 at 14:30 Sodium Biphosphate/ Sodium Phosphate (Fleet Enema) 133 ml BID PRN [place] CONSTIPATION; Start 01/10/17 at 14:30 Pantoprazole (Protonix Iv) 40 mg DAILY@06 IV Last administered on 01/11/17 05: 34; Admin Dose 40 MG; Start 01/11/17 at 06:00 Heparin Sodium (Porcine) (Heparin (5000 Units/0.5 ml)) 5,000 unit BID SC Last administered on 01/11/17 11:32; Admin Dose 5,000 UNIT; Start 01/11/17 at 09:00 Docusate Sodium (Colace) 100 mg BID PO ; Start 01/12/17 at 21:00 Sodium Biphosphate/ Sodium Phosphate (Fleet Enema) 133 ml BID [place] ; Start at 21:00 Bisacodyl (Dulcolax Supp) 10 mg BID [place] ; Start 01/12/17 at 21:00 JUAN JOSE JEREZ Jan 11, 2017 16:57
--- NOTE | 2017-01-11 17:20 | PN ---
Date/Time of Note Date/Time of Note DATE: 01/11/17 TIME: 17:12 Assessment/Plan Lines/Catheters IV Catheter Type (from Nrs): Saline Lock Mann in Place (from Nrs): Yes Assessment/Plan Assessment/Plan [facility] Progress Note Date of Service: 01/11/17 Today's Impression & Plan: Overall doing well post op without major issues. No major wound problems. Awaiting return of bowel function. Path pending. With above assessment, I've recommended the following for today: 1. D/c NG 2. Sips of clears with plans to start advancing if no issues by tomorrow 3. Increase activity 4. Increase ICS 5. Cont epidural Thank you again for your great care of this very pleasant patient and wonderful family. If there are any questions, please feel free to call me at [phone]. TOTAL VISIT TIME: 20 minutes of which more than half was spent in [id number] discussion with the patient, possibly including family, as well as coordination of care between multiple physicians and providers. Disclaimer: Inadvertent spelling or grammatical errors are likely due to EHR/ dictation software use and do not reflect on the overall quality of patient care. Updated Clinical Summary: The patient is a very pleasant 65-year-old gentleman well known to me from prior visit, with past medical history significant for obesity (BMI 32.7), bilateral knee and other joint pain, and hypertension, who was initially admitted to [facility] through ED on 04/07/2016 with 1 day history of abdominal pain associated with nausea and vomiting (4). Patient's emergency department workup included laboratory values that showed a normal white blood cell count of 9.8 and platelet count of 346, elevated creatinine at 1.25 and CO2 of 25. LFTs were normal. INR was 1.11. CT scan showed small foci of intra-abdominal free air compatible with bowel perforation. This was presumably in the region of the gastric antrum which was surrounded by some inflammatory changes and mildly enlarged lymph nodes. Underlying ulcer, gastritis or neoplasm wearing the differential. After consultation I decided to wait and not immediately operate on the patient given his normal hemodynamics and laboratory values. We were, however, sufficiently concerned for the patient's abdominal pain. On hospital day #2, the patient showed ongoing abdominal pain and elevation in white blood cell count to 17 and tachycardia. For this reason, patient underwent laparoscopic repair of perforated gastric ulcer with Sukh patch and abdominal lavage on 04/07/2016. Upper GI neg 04/11/16. Drain d/c'd 04/13/16. L hand cellulitis, improved with antimicrobial treatment and time in hospital. D/c'd home 04/20/16. Readmitted 05/02/16 with anemia. EGD x 2 showed ulcer dz and no obvious evidence for malignancy. D/c home 05/10; readmitted on 05/14 and d/c 05/16; fainted on way to see us in the office on 05/25, but neg ED w/u; readmitted for a third time since that operation on 07/15/16 for gastric outlet obstruction and GI bleeding. Ongoing issues with weight loss. Could not tolerate much oral intake. 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 EGD 07/25/16 showed small opening that made attempt at stenting possible. Started TPN 07/27/16. S/p endoscopic duodenal stent placement 07/28/16. Dx lap 08/01/16 showed no obvious evidence of widespread metastasis. Few areas biopsied and path showed no malignancy in the biopsied areas or in the cytology sample sent. Patient s/p 12 cycles of FOLFOX ending 12/01/16 (no Avastin; Her2 negative tumor). Patient developed loculated pneumothorax and empyema that was treated with Heimlich valve placement ( pathology from pleural fluid negative for malignant cells). On 01/10/17, s/p laparoscopic exploration with laparoscopic wedge liver biopsy x2 as well as falciform ligament biopsy, with open subtotal gastrectomy, celiac artery lymph node dissection, hepatic artery lymph node biopsy, celiac artery lymph node biopsy, splenic artery lymph node biopsy, abdominal lavage, omentectomy, and lysis of adhesions were performed with findings of malignancy in distal stomach. Comorbidities: 1. Gastric malignancy, s/p neoadjuvant chemotherapy. On 01/10/17, s/p laparoscopic exploration with laparoscopic wedge liver biopsy x2 as well as falciform ligament biopsy, with open subtotal gastrectomy, celiac artery lymph node dissection, hepatic artery lymph node biopsy, celiac artery lymph node biopsy, splenic artery lymph node biopsy, abdominal lavage, omentectomy, and lysis of adhesions were performed with findings of malignancy in distal stomach. 2. Bilateral knee and other joint pain 3. Hypertension 4. Gastric perforation 04/21 5. Laparoscopic repair for gastric perforation 04/21 Subjective: No major events or complaints; no abd pain and under control with medications; no n/v/d; no sob or cp; + flatus; + BM and normal; + activity Objective: Vitals: See below Exam: GENERAL: On exam, the patient was laying in bed and appeared to be comfortable and in no acute distress. NG bilious with minimal output. ABDOMEN: Soft, nontender and nondistended. Incision dressings are clean, dry and intact without any evidence of underlying erythema, edema, discharge, or hernia. There are no peritoneal signs or guarding. SKIN: Skin appears to be pink and feels warm to touch. NEUROLOGIC: Patient is awake, alert, and follows commands appropriately. Exam/Review of Systems Vital Signs Vitals Vital Signs Date Time Temp Pulse Resp B/P Pulse Ox O2 Delivery O2 Flow Rate FiO2 01/11/17 16:00 98.2 76 20 127/60 99 01/10/17 18:30 Room Air Intake and Output 01/10/17 01/10/17 01/11/17 15:00 23:00 07:00 Intake Total 250 ml 10 ml 1320 ml Output Total 500 ml 400 ml 1400 ml Balance -250 ml -390 ml -80 ml Results Result Diagram: 01/11/17 0420 01/11/17 0420 HELEN BRASWELL M.D. Jan 11, 2017 17:20
[2017-01-11 20:22] VITALS: BP 128/70; RESP 19
[2017-01-12] MEDS: FENTAnyl 2MCG/ML-ROPIV 0.2% 100 ML BAG EPI SCH (01:45)
[2017-01-12 05:12] LABS: ADD SCAN DIFF NO
[2017-01-12 05:24] LABS: POTASSIUM 4.1 mmol/L (3.5-5.1)
[2017-01-12 05:26] LABS: CREATININE 0.7 mg/dl (0.61-1.24)
[2017-01-12 05:27] LABS: BASOPHILS % 0.2 % (0.0-2.0); EOSINOPHILS # 0.2 10^3/ul (0.0-0.5); EOSINOPHILS % 1.6 % (0.0-7.0); HEMATOCRIT 34.6 % (42.0-52.0); HEMOGLOBIN 11.1 g/dl (14.0-18.0); LYMPHOCYTES % 20.8 % (15.0-51.0); MEAN CORPUSCULAR HEMOGLOBIN 30.2 pg (29.0-33.0); MEAN CORPUSCULAR HGB CONC 32.1 g/dl (32.0-37.0); MEAN CORPUSCULAR VOLUME 94.3 fl (82.0-101.0); MEAN PLATELET VOLUME 10.1 fl (7.4-10.4); MONOCYTE # 0.6 10^3/ul (0.3-0.9); NEUTROPHIL # 6.9 10^3/ul (1.6-7.5); PLATELET COUNT 163 10^3/UL (140-415); RED BLOOD COUNT 3.67 10^6/ul (4.70-6.10); RED CELL DISTRIBUTION WIDTH 15.9 % (11.5-14.5); WHITE BLOOD COUNT 9.7 10^3/ul (4.8-10.8)
[2017-01-12] MEDS: PANTOPRAZOLE 40 MG INJ IV SCH (06:00)
--- NOTE | 2017-01-12 08:36 | PN ---
Date/Time of Note Date/Time of Note DATE: 01/12/17 TIME: 08:34 Assessment/Plan Lines/Catheters IV Catheter Type (from Nrsg): Saline Lock Mann in Place (from Nrsg): Yes Assessment/Plan Assessment/Plan [facility] Progress Note Date of Service: 01/12/17 Today's Impression & Plan: Overall doing well post op without major issues. No major wound problems. Tolerated NG out and sips. Awaiting further return of bowel function. Path pending. With above assessment, I've recommended the following for today: 1. Clear liquid diet 2. Conversion to oral and d/c/ epidural if adequate pain control on pills and Toradol 3. Increase activity 4. Increase ICS 5. Keep inhouse Thank you again for your great care of this very pleasant patient and wonderful family. If there are any questions, please feel free to call me at [phone]. TOTAL VISIT TIME: 20 minutes of which more than half was spent in [id number] discussion with the patient, possibly including family, as well as coordination of care between multiple physicians and providers. Disclaimer: Inadvertent spelling or grammatical errors are likely due to EHR/ dictation software use and do not reflect on the overall quality of patient care. Updated Clinical Summary: The patient is a very pleasant 65-year-old gentleman well known to me from prior visit, with past medical history significant for obesity (BMI 32.7), bilateral knee and other joint pain, and hypertension, who was initially admitted to [facility] through ED on 04/07/2016 with 1 day history of abdominal pain associated with nausea and vomiting (4). Patient's emergency department workup included laboratory values that showed a normal white blood cell count of 9.8 and platelet count of 346, elevated creatinine at 1.25 and CO2 of 25. LFTs were normal. INR was 1.11. CT scan showed small foci of intra-abdominal free air compatible with bowel perforation. This was presumably in the region of the gastric antrum which was surrounded by some inflammatory changes and mildly enlarged lymph nodes. Underlying ulcer, gastritis or neoplasm wearing the differential. After consultation I decided to wait and not immediately operate on the patient given his normal hemodynamics and laboratory values. We were, however, sufficiently concerned for the patient's abdominal pain. On hospital day #2, the patient showed ongoing abdominal pain and elevation in white blood cell count to 17 and tachycardia. For this reason, patient underwent laparoscopic repair of perforated gastric ulcer with Sukh patch and abdominal lavage on 04/07/2016. Upper GI neg 04/11/16. Drain d/c'd 04/13/16. L hand cellulitis, improved with antimicrobial treatment and time in hospital. D/c'd home 04/20/16. Readmitted 05/02/16 with anemia. EGD x 2 showed ulcer dz and no obvious evidence for malignancy. D/c home 05/10; readmitted on 05/14 and d/c 05/16; fainted on way to see us in the office on 05/25, but neg ED w/u; readmitted for a third time since that operation on 07/15/16 for gastric outlet obstruction and GI bleeding. Ongoing issues with weight loss. Could not tolerate much oral intake. 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 EGD 07/25/16 showed small opening that made attempt at stenting possible. Started TPN 07/27/16. S/p endoscopic duodenal stent placement 07/28/16. Dx lap 08/01/16 showed no obvious evidence of widespread metastasis. Few areas biopsied and path showed no malignancy in the biopsied areas or in the cytology sample sent. Patient s/p 12 cycles of FOLFOX ending 12/01/16 (no Avastin; Her2 negative tumor). Patient developed loculated pneumothorax and empyema that was treated with Heimlich valve placement ( pathology from pleural fluid negative for malignant cells). On 01/10/17, s/p laparoscopic exploration with laparoscopic wedge liver biopsy x2 as well as falciform ligament biopsy, with open subtotal gastrectomy, celiac artery lymph node dissection, hepatic artery lymph node biopsy, celiac artery lymph node biopsy, splenic artery lymph node biopsy, abdominal lavage, omentectomy, and lysis of adhesions were performed with findings of malignancy in distal stomach. Comorbidities: 1. Gastric malignancy, s/p neoadjuvant chemotherapy. On 01/10/17, s/p laparoscopic exploration with laparoscopic wedge liver biopsy x2 as well as falciform ligament biopsy, with open subtotal gastrectomy, celiac artery lymph node dissection, hepatic artery lymph node biopsy, celiac artery lymph node biopsy, splenic artery lymph node biopsy, abdominal lavage, omentectomy, and lysis of adhesions were performed with findings of malignancy in distal stomach. 2. Bilateral knee and other joint pain 3. Hypertension 4. Gastric perforation 04/21 5. Laparoscopic repair for gastric perforation 04/21 Subjective: No major events or complaints; no abd pain and under control with medications; no n/v/d; no sob or cp; + flatus; - BM; minimal activity Objective: Vitals: See below Exam: GENERAL: On exam, the patient was laying in bed and appeared to be comfortable and in no acute distress. ABDOMEN: Soft, nontender and nondistended. Incision dressings d/c'd. Incisions are clean, dry and intact without any evidence of erythema, edema, discharge, or hernia. There are no peritoneal signs or guarding. SKIN: Skin appears to be pink and feels warm to touch. NEUROLOGIC: Patient is awake, alert, and follows commands appropriately. Exam/Review of Systems Vital Signs Vitals Vital Signs Date Time Temp Pulse Resp B/P Pulse Ox O2 Delivery O2 Flow Rate FiO2 01/11/17 20:22 98.2 91 19 128/70 99 01/10/17 18:30 Room Air Intake and Output 01/11/17 01/11/17 01/12/17 15:00 23:00 07:00 Intake Total 500 ml 700 ml 240 ml Output Total 2500 ml 1400 ml Balance 500 ml -1800 ml -1160 ml Results Result Diagram: 01/12/170 01/12/17 042 HELEN BRASWELL M.D. Jan 12, 2017 08:36
[2017-01-12 08:41] VITALS: BP 117/69; RESP 18
[2017-01-12] MEDS: HEPARIN 5,000 UNIT/0.5 ML SYG SC SCH ×2 (09:00→20:32)
[2017-01-12] MEDS: KETOROLAC 30 MG INJ IV SCH ×3 (10:02→20:33)
--- NOTE | 2017-01-12 13:00 | CONS ---
Date/Time of Note Date/Time of Note DATE: 01/12/17 TIME: 12:56 Assessment/Plan Assessment/Plan Chief Complaint/Hosp Course 66 yo M with gastric CA POD 2 s/p exploratory laparoscopy, open subtotal gastrectomy -thoracic epidural d/c'd, site c/d/i, discussed plan with Dr. Chavis -may give heparin SC at 9 pm -care per primary Problems: Consultation Date/Type/Reason Admit Date/Time Jan 10, 2017 at 05:34 Initial Consult Date January 10, 2017 Type of Consultation: Anesthesia pain 24 HR Interval Summary Free Text/Dictation Pt was started on sips, advanced to clears. Pt was given po pain meds and toradol, epidural held since 9:30 am, pain controlled, denies pain. Heparin SC dose this am held, epidural d/c'd, tip intact, no issues. Constitutional: no complaints Exam/Review of Systems Vital Signs Vitals Vital Signs Date Time Temp Pulse Resp B/P Pulse Ox O2 Delivery O2 Flow Rate FiO2 01/12/17 08:41 98.9 83 18 117/69 98 01/10/17 18:30 Room Air Intake and Output 01/11/17 01/11/17 01/12/17 15:00 23:00 07:00 Intake Total 500 ml 700 ml 240 ml Output Total 2500 ml 1400 ml Balance 500 ml -1800 ml -1160 ml Exam Pt OOB sitting in chair, doing well, denies pain, no nausea, NGT d/c'd. Constitutional: alert, oriented Psych: nl mood/affect, no complaints Head: atraumatic, normocephalic Eyes: EOMI, PERRL, nl conjunctiva, nl sclera ENMT: mucosa pink and moist, nl external ears & nose, nl lips & teeth Neck: non-tender, supple Respiratory: clear to auscultation, normal air movement Cardiovascular: nl pulses, regular rate and rhythm Skin: nl turgor Additional Comments Epidural site c/d/i, no erythema, no pain on palpation. Results Result Diagram: 01/12/1741901/12/17419 Results 24 hrs Laboratory Tests Test 01/12/17 04:20 Anion Gap 10 Basophils # 0.0 Basophils % 0.2 Blood Urea Nitrogen 8 Calcium Level 8.0 L Carbon Dioxide Level 28 Chloride Level 103 Creatinine 0.70 Eosinophils # 0.2 Eosinophils % 1.6 Glucose Level 83 Hematocrit 34.6 L Hemoglobin 11.1 L Lymphocytes # 2.0 Lymphocytes % 20.8 Mean Corpuscular Hemoglobin 30.2 Mean Corpuscular Hemoglobin Concent 32.1 Mean Corpuscular Volume 94.3 Mean Platelet Volume 10.1 Monocytes # 0.6 Monocytes % 6.0 Neutrophils # 6.9 Neutrophils % 71.0 Nucleated Red Blood Cells # 0.0 Nucleated Red Blood Cells % 0.0 Platelet Count 163 Potassium Level 4.1 Red Blood Count 3.67 L Red Cell Distribution Width 15.9 H Sodium Level 137 White Blood Count 9.7 # Medications Medications Current Medications Hydromorphone HCl (Dilaudid) 0.2 mg Q2H PRN IV PAIN LEVEL 1-5; Start 01/10/17 at 14:00 Diphenhydramine HCl (Benadryl) 25 mg Q4H PRN IV PRURITUS; Start 01/10/17 at 14: 00 Ondansetron HCl (Zofran Inj) 4 mg Q6H PRN IV NAUSEA AND/OR VOMITING; Start 01/10 at 14:00 Naloxone HCl 0.2 mg 0.2 mg Q2M PRN IV FOR RESP RATE 8 OR LESS; Start 01/10/17 at 14:00 Potassium Chloride/Dextrose/ Sod Cl (D5-1/2ns + KCl 20 Meq) 1,000 ml @ 100 mls/ hr Q10H IV Last administered on 01/11/17 22:46; Admin Dose 100 MLS/HR; Start at 14:08 Acetaminophen/ Hydrocodone Bitart ([place] (5/325)) 1 tab Q4H PRN PO PAIN LEVEL 4 -7; Start 01/10/17 at 14:30 Acetaminophen/ Hydrocodone Bitart ([place] (5/325)) 2 tab Q4H PRN PO PAIN LEVEL 7 -10 Last administered on 01/12/17 08:48; Admin Dose 2 TAB; Start 01/10/17 at 14: 30 Hydromorphone HCl (Dilaudid) 0.5 mg Q2 PRN IV PAIN; Start 01/10/17 at 14:30 Hydromorphone HCl (Dilaudid) 1 mg Q2 PRN IV PAIN; Start 01/10/17 at 14:30 Docusate Sodium (Colace) 100 mg BID PRN PO CONSTIPATION; Start 01/10/17 at 14:30 Bisacodyl (Dulcolax Supp) 10 mg BID PRN NE CONSTIPATION; Start 01/10/17 at 14:30 Sodium Biphosphate/ Sodium Phosphate (Fleet Enema) 133 ml BID PRN NE CONSTIPATION; Start 01/10/17 at 14:30 Pantoprazole (Protonix Iv) 40 mg DAILY@06 IV Last administered on 01/12/17 06: 00; Admin Dose 40 MG; Start 01/11/17 at 06:00 Heparin Sodium (Porcine) (Heparin (5000 Units/0.5 ml)) 5,000 unit BID SC Last administered on 01/11/17 21:13; Admin Dose 5,000 UNIT; Start 01/11/17 at 09:00 Docusate Sodium (Colace) 100 mg BID PO ; Start 01/12/17 at 21:00 Sodium Biphosphate/ Sodium Phosphate (Fleet Enema) 133 ml BID NE ; Start at 21:00 Bisacodyl (Dulcolax Supp) 10 mg BID NE ; Start 01/12/17 at 21:00 Ketorolac Tromethamine (Toradol) 30 mg Q6H IV Last administered on 01/12/17 10: 02; Admin Dose 30 MG; Start 01/12/17 at 09:00; Stop 01/13/17 at 03:01 BRITANY ARREDONDO MD Jan 12, 2017 13:00
[2017-01-12] MEDS: D5W-0.45 NACL + KCL 20 MEQ 1,000 ML IV SCH (16:13)
--- NOTE | 2017-01-12 16:47 | PN ---
Date/Time of Note Date/Time of Note DATE: 01/12/17 TIME: 16:45 Assessment/Plan VTE Prophylaxis VTE Prophylaxis Intervention: SCD's Lines/Catheters IV Catheter Type (from Nrs): Peripheral IV Urinary Cath still in place: Yes Assessment/Plan Assessment/Plan 1. 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 Chavis. Patient is currently on epidural analgesia. Advance diet per surgery. Continue IV fluids monitor electrolytes. Continue Dilaudid p.r.n. for pain and Zofran p.r.n. for nausea. 2. Hypertension by history. Patient is currently normotensive. 3. Paroxysmal atrial fibrillation by history. Continue Protonix for peptic ulcer disease. Continue heparin for deep venous thrombosis prophylaxis, except for hold heparin in a.m. for epidural catheter DC. Further recommendations based on clinical course. Plan of care discussed with Dr. Reese. Subjective 24 Hr Interval Summary Constitutional: improved Eyes: no complaints ENT: no complaints Respiratory: no complaints Cardiovascular: no complaints Gastrointestinal: pain Genitourinary: no complaints Musculoskeletal: no complaints Skin: no complaints Neurologic: no complaints Endocrine: no complaints Lymphatic: adenopathy, no complaints Psychological: nl mood/affect Immunologic: no complaints Exam/Review of Systems Vital Signs Vitals Vital Signs Date Time Temp Pulse Resp B/P Pulse Ox O2 Delivery O2 Flow Rate FiO2 01/12/17 08:41 98.9 83 18 117/69 98 01/10/17 18:30 Room Air Intake and Output 01/11/17 01/11/17 01/12/17 15:00 23:00 07:00 Intake Total 500 ml 700 ml 240 ml Output Total 2500 ml 1400 ml Balance 500 ml -1800 ml -1160 ml Exam Constitutional: alert, oriented, well developed Head: atraumatic Eyes: nl conjunctiva ENMT: nl external ears & nose Neck: supple Respiratory: clear to auscultation Cardiovascular: regular rate and rhythm Gastrointestinal: non-tender, soft Musculoskeletal: nl extremities to inspection Extremities: calf tenderness Neurological: nl mental status, nl speech Skin: nl turgor Lymph: nl lymph nodes Results Result Diagram: 01/12/1741901/12/17419 Results 24 hrs Laboratory Tests Test 01/12/17 04:20 Anion Gap 10 Basophils # 0.0 Basophils % 0.2 Blood Urea Nitrogen 8 Calcium Level 8.0 L Carbon Dioxide Level 28 Chloride Level 103 Creatinine 0.70 Eosinophils # 0.2 Eosinophils % 1.6 Glucose Level 83 Hematocrit 34.6 L Hemoglobin 11.1 L Lymphocytes # 2.0 Lymphocytes % 20.8 Mean Corpuscular Hemoglobin 30.2 Mean Corpuscular Hemoglobin Concent 32.1 Mean Corpuscular Volume 94.3 Mean Platelet Volume 10.1 Monocytes # 0.6 Monocytes % 6.0 Neutrophils # 6.9 Neutrophils % 71.0 Nucleated Red Blood Cells # 0.0 Nucleated Red Blood Cells % 0.0 Platelet Count 163 Potassium Level 4.1 Red Blood Count 3.67 L Red Cell Distribution Width 15.9 H Sodium Level 137 White Blood Count 9.7 # Medications Medications Current Medications Hydromorphone HCl (Dilaudid) 0.2 mg Q2H PRN IV PAIN LEVEL 1-5; Start 01/10/17 at 14:00 Diphenhydramine HCl (Benadryl) 25 mg Q4H PRN IV PRURITUS; Start 01/10/17 at 14: 00 Ondansetron HCl (Zofran Inj) 4 mg Q6H PRN IV NAUSEA AND/OR VOMITING; Start 01/10 at 14:00 Naloxone HCl 0.2 mg 0.2 mg Q2M PRN IV FOR RESP RATE 8 OR LESS; Start 01/10/17 at 14:00 Potassium Chloride/Dextrose/ Sod Cl (D5-1/2ns + KCl 20 Meq) 1,000 ml @ 100 mls/ hr Q10H IV Last administered on 01/12/17 16:13; Admin Dose 100 MLS/HR; Start at 14:08 Acetaminophen/ Hydrocodone Bitart ([place] (5/325)) 1 tab Q4H PRN PO PAIN LEVEL 4 -7; Start 01/10/17 at 14:30 Acetaminophen/ Hydrocodone Bitart ([place] (5/325)) 2 tab Q4H PRN PO PAIN LEVEL 7 -10 Last administered on 01/12/17 08:48; Admin Dose 2 TAB; Start 01/10/17 at 14: 30 Hydromorphone HCl (Dilaudid) 0.5 mg Q2 PRN IV PAIN; Start 01/10/17 at 14:30 Hydromorphone HCl (Dilaudid) 1 mg Q2 PRN IV PAIN; Start 01/10/17 at 14:30 Docusate Sodium (Colace) 100 mg BID PRN PO CONSTIPATION; Start 01/10/17 at 14:30 Bisacodyl (Dulcolax Supp) 10 mg BID PRN MA CONSTIPATION; Start 01/10/17 at 14:30 Sodium Biphosphate/ Sodium Phosphate (Fleet Enema) 133 ml BID PRN MA CONSTIPATION; Start 01/10/17 at 14:30 Pantoprazole (Protonix Iv) 40 mg DAILY@06 IV Last administered on 01/12/17 06: 00; Admin Dose 40 MG; Start 01/11/17 at 06:00 Heparin Sodium (Porcine) (Heparin (5000 Units/0.5 ml)) 5,000 unit BID SC Last administered on 01/11/17 21:13; Admin Dose 5,000 UNIT; Start 01/11/17 at 09:00 Docusate Sodium (Colace) 100 mg BID PO ; Start 01/12/17 at 21:00 Sodium Biphosphate/ Sodium Phosphate (Fleet Enema) 133 ml BID MA ; Start at 21:00 Bisacodyl (Dulcolax Supp) 10 mg BID MA ; Start 01/12/17 at 21:00 Ketorolac Tromethamine (Toradol) 30 mg Q6H IV Last administered on 01/12/17 16: 09; Admin Dose 30 MG; Start 01/12/17 at 09:00; Stop 01/13/17 at 03:01 DREAD CRISOSTOMO Jan 12, 2017 16:46
[2017-01-12 19:50] VITALS: BP 124/78; RESP 18
[2017-01-12] MEDS: NA PHOSPHATE/BIPHOS 133 ML ENEMA PR SCH ×2 (20:34→20:45)
[2017-01-12] MEDS: BISACODYL 10 MG SUPP PR SCH ×2 (20:34→20:45)
[2017-01-12] MEDS: DOCUSATE SODIUM 100 MG CAP PO SCH (20:34)
[2017-01-13] MEDS: D5W-0.45 NACL + KCL 20 MEQ 1,000 ML IV SCH ×2 (02:08→11:31)
[2017-01-13] MEDS: KETOROLAC 30 MG INJ IV SCH (02:57)
[2017-01-13 05:40] LABS: ADD SCAN DIFF NO
[2017-01-13 05:52] LABS: BASOPHILS % 0.5 % (0.0-2.0); EOSINOPHILS # 0.5 10^3/ul (0.0-0.5); EOSINOPHILS % 7.2 % (0.0-7.0); HEMATOCRIT 35.6 % (42.0-52.0); HEMOGLOBIN 11.7 g/dl (14.0-18.0); LYMPHOCYTES # 1.7 10^3/ul (0.8-2.9); MEAN CORPUSCULAR HEMOGLOBIN 30.4 pg (29.0-33.0); MEAN CORPUSCULAR HGB CONC 32.9 g/dl (32.0-37.0); MEAN CORPUSCULAR VOLUME 92.5 fl (82.0-101.0); MEAN PLATELET VOLUME 10.1 fl (7.4-10.4); MONOCYTE # 0.4 10^3/ul (0.3-0.9); MONOCYTES % 6.3 % (0.0-11.0); NEUTROPHIL # 3.8 10^3/ul (1.6-7.5); NEUTROPHILS % 59.7 % (39.0-77.0); PLATELET COUNT 180 10^3/UL (140-415); RED BLOOD COUNT 3.85 10^6/ul (4.70-6.10); RED CELL DISTRIBUTION WIDTH 15.2 % (11.5-14.5); WHITE BLOOD COUNT 6.4 10^3/ul (4.8-10.8)
[2017-01-13 06:00] LABS: POTASSIUM 3.8 mmol/L (3.5-5.1)
[2017-01-13 06:02] LABS: CREATININE 0.62 mg/dl (0.61-1.24)
[2017-01-13] MEDS: PANTOPRAZOLE 40 MG INJ IV SCH (06:02)
[2017-01-13 06:03] LABS: CALCIUM 8.1 mg/dl (8.4-10.2)
[2017-01-13 07:00] VITALS: BP 133/81; RESP 20
[2017-01-13] MEDS: BISACODYL 10 MG SUPP PR SCH ×2 (08:20→20:22)
[2017-01-13] MEDS: NA PHOSPHATE/BIPHOS 133 ML ENEMA PR SCH ×2 (08:20→20:23)
[2017-01-13] MEDS: DOCUSATE SODIUM 100 MG CAP PO SCH ×2 (08:25→20:24)
[2017-01-13] MEDS: HEPARIN 5,000 UNIT/0.5 ML SYG SC SCH ×2 (08:27→20:26)
[2017-01-13] MEDS ORDERED: BISACODYL 10 MG SUPP PR SCH (09:00)
[2017-01-13] MEDS: CIPROFLOXACIN 400MG/D5W 200 ML IVPB SCH ×2 (10:17→20:24)
--- NOTE | 2017-01-13 16:48 | PN ---
Date/Time of Note Date/Time of Note DATE: 01/13/17 TIME: 16:45 Assessment/Plan Lines/Catheters IV Catheter Type (from Nrs): Peripheral IV Mann in [facility] (from [facility]): No Assessment/Plan Assessment/Plan [facility] Progress Note Date of Service: 01/13/17 Today's Impression & Plan: Overall doing well post op without major issues. No major wound problems. Tolerated clear liquid diet. Showing some signs of return of bowel function. Path reviewed. Possible d/c plans for tomorrow. With above assessment, I've recommended the following for today: 1. Advance diet to regular 2. Saline lock IV 3. Increase activity 4. Increase ICS 5. Keep inhouse with possible plans to d/c tomorrow 6. Needs reinforcement regarding need for lifetime proton pump inhibition ( Pantoprazole or equivalent) Thank you again for your great care of this very pleasant patient and wonderful family. If there are any questions, please feel free to call me at [phone]. TOTAL VISIT TIME: 20 minutes of which more than half was spent in [id number] discussion with the patient, possibly including family, as well as coordination of care between multiple physicians and providers. Disclaimer: Inadvertent spelling or grammatical errors are likely due to EHR/ dictation software use and do not reflect on the overall quality of patient care. Updated Clinical Summary: The patient is a very pleasant 65-year-old gentleman well known to me from prior visit, with past medical history significant for obesity (BMI 32.7), bilateral knee and other joint pain, and hypertension, who was initially admitted to [facility] through ED on 04/07/2016 with 1 day history of abdominal pain associated with nausea and vomiting (4). Patient's emergency department workup included laboratory values that showed a normal white blood cell count of 9.8 and platelet count of 346, elevated creatinine at 1.25 and CO2 of 25. LFTs were normal. INR was 1.11. CT scan showed small foci of intra-abdominal free air compatible with bowel perforation. This was presumably in the region of the gastric antrum which was surrounded by some inflammatory changes and mildly enlarged lymph nodes. Underlying ulcer, gastritis or neoplasm wearing the differential. After consultation I decided to wait and not immediately operate on the patient given his normal hemodynamics and laboratory values. We were, however, sufficiently concerned for the patient's abdominal pain. On hospital day #2, the patient showed ongoing abdominal pain and elevation in white blood cell count to 17 and tachycardia. For this reason, patient underwent laparoscopic repair of perforated gastric ulcer with Sukh patch and abdominal lavage on 04/07/2016. Upper GI neg 04/11/16. Drain d/c'd 04/13/16. L hand cellulitis, improved with antimicrobial treatment and time in hospital. D/c'd home 04/20/16. Readmitted 05/02/16 with anemia. EGD x 2 showed ulcer dz and no obvious evidence for malignancy. D/c home 05/10; readmitted on 05/14 and d/c 05/16; fainted on way to see us in the office on 05/25, but neg ED w/u; readmitted for a third time since that operation on 07/15/16 for gastric outlet obstruction and GI bleeding. Ongoing issues with weight loss. Could not tolerate much oral intake. 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 EGD 07/25/16 showed small opening that made attempt at stenting possible. Started TPN 07/27/16. S/p endoscopic duodenal stent placement 07/28/16. Dx lap 08/01/16 showed no obvious evidence of widespread metastasis. Few areas biopsied and path showed no malignancy in the biopsied areas or in the cytology sample sent. Patient s/p 12 cycles of FOLFOX ending 12/01/16 (no Avastin; Her2 negative tumor). Patient developed loculated pneumothorax and empyema that was treated with Heimlich valve placement ( pathology from pleural fluid negative for malignant cells). On 01/10/17, s/p laparoscopic exploration with laparoscopic wedge liver biopsy x2 as well as falciform ligament biopsy, with open subtotal gastrectomy, celiac artery lymph node dissection, hepatic artery lymph node biopsy, celiac artery lymph node biopsy, splenic artery lymph node biopsy, abdominal lavage, omentectomy, and lysis of adhesions were performed with findings of malignancy in distal stomach. Comorbidities: 1. Gastric malignancy, s/p neoadjuvant chemotherapy. On 01/10/17, s/p laparoscopic exploration with laparoscopic wedge liver biopsy x2 as well as falciform ligament biopsy, with open subtotal gastrectomy, celiac artery lymph node dissection, hepatic artery lymph node biopsy, celiac artery lymph node biopsy, splenic artery lymph node biopsy, abdominal lavage, omentectomy, and lysis of adhesions were performed with findings of malignancy in distal stomach. 2. Bilateral knee and other joint pain 3. Hypertension 4. Gastric perforation 04/21 5. Laparoscopic repair for gastric perforation 04/21 Final Path: MICROSCOPIC DIAGNOSIS: A-Falciform ligament, biopsy: -- Fibroadipose and fibrocollagenous tissue showing focal foreign body giant cell reaction to plant material. -- There is no evidence of malignancy. B-Liver wedge biopsy segment #2: -- Segment of liver showing an intracapsular fragment of plant material with foreign body giant cell reaction and fibrosis. -- Chronic inflammation of adjacent portal zones, mild. -- There is no evidence of malignancy. C-Liver wedge biopsy segment #4B: -- Focal capsular foreign body giant cell reaction to plant material. -- There is no evidence of malignancy. D-Falciform ligament #2: -- Fibrocollagenous and adipose tissue showing vascular congestion. -- There is no evidence of malignancy. E-Hepatic artery lymph node: -- Reactive follicular hyperplasia and mild sinus histiocytosis. -- There is no evidence of malignancy. F-Stomach and duodenum, partial resection: -- Adenocarcinoma, moderately-differentiated, intestinal type, diffusely involving the lesser curvature, posterior wall and greater curvature of the pylorus. -- Maximum tumor diameter 4.0 cm. -- Carcinoma penetrates through the muscularis propria into greater curvature and lesser curvature adipose tissue and subserosa. -- There is no involvement of visceral serosa by tumor. -- Lymph-vascular or perineural invasion is not identified. -- Proximal gastric, distal duodenal and radial margins of resection are clear of tumor. -- Metastatic carcinoma is present in lymph nodes in the greater curvature, adjacent to the tumor (4/24). -- Chronic gastric, mild and patchy involving oxyntic and antral mucosa. G-Omentum: -- No significant histopathological abnormalities are identified. -- There is no evidence of malignancy. H-Celiac artery lymph node: -- One lymph node shows reactive follicular hyperplasia. -- There is no evidence of malignancy. I-Splenic artery lymph node: -- One lymph node shows reactive follicular hyperplasia. -- There is no evidence of malignancy. J-Omentum #2: -- A focus of embedded plant material with foreign body giant cell reaction. -- Moderate vascular congestion. -- There is no evidence of malignancy. SYNOPTIC CASE SUMMARY: SPECIMEN: Gastric antrum and proximal duodenum. PROCEDURE: Partial gastrectomy, distal. TUMOR SITE: Lesser curvature and adjacent upper anterior pylorus; posterior wall and greater curvature of pylorus (partially circumferential). TUMOR SIZE: Greatest dimension 4.0 cm (x 3.0 x 1.4 cm). HISTOLOGIC TYPE: Adenocarcinoma, intestinal type. HISTOLOGIC GRADE: Grade 2, moderately-differentiated. MICROSCOPIC EXTENT TUMOR: Tumor invades through muscularis propria into subserosa and adipose tissue of the greater and lesser curvatures. There is no visceral peritoneal involvement by carcinoma. MARGINS: All margins are uninvolved carcinoma. Distance of carcinoma from closest margin: Carcinoma is 5.0 cm from the distal duodenal margin. Proximal gastric and radial (omental) margins: Uninvolved by carcinoma. TREATMENT EFFECT: No definite response identified (grade 3, poor to no response ). LYMPH-VASCULAR INVASION: Not identified PERINEURAL INVASION: Not identified. REGIONAL LYMPH NODES: Number of lymph nodes examined: 27. Number of lymph nodes involved: 4 (four greater curvature lymph nodes are involved by metastatic carcinoma - 03/02). ADDITIONAL PATHOLOGIC FINDINGS: -- Chronic gastritis, mild and patchy. -- Extensive ulceration of tumor surface. -- Focal acute ulceration of duodenal mucosa. -- Foreign body giant cell reaction to subserosal suture beneath the attached omentum at the anterior lesser curvature. -- Focal foreign body giant cell reaction to vegetable matter in biopsies of falciform ligament and liver capsule. ANCILLARY STUDIES: HER2 immunoperoxidase stain pending. Giemsa stain for H. pylori pending. COMMENT: Finding are discussed with Dr. Helen Braswell on 01/12/2017. HER2 by IHC is pending at [facility] and a separate supplemental report of that result will follow. Additionally, a Giemsa stain is pending on the uninvolved gastric mucosa and results will be reported separately. This patient had a previous gastric antral biopsy showing poorly-differentiated adenocarcinoma, intestinal type ([facility] case no. [id number]; 07/19/2016). Subjective: No major events or complaints; no abd pain and under control with medications; no n/v/d; no sob or cp; + flatus; - BM; more activity Objective: Vitals: See below Exam: GENERAL: On exam, the patient was sitting in a chair and appeared to be comfortable and in no acute distress. ABDOMEN: Soft, nontender and nondistended. Incisions are clean, dry and intact without any evidence of erythema, edema, discharge, or hernia. There are no peritoneal signs or guarding. SKIN: Skin appears to be pink and feels warm to touch. NEUROLOGIC: Patient is awake, alert, and follows commands appropriately. Exam/Review of Systems Vital Signs Vitals Vital Signs Date Time Temp Pulse Resp B/P Pulse Ox O2 Delivery O2 Flow Rate FiO2 01/13/17 07:00 98.3 69 20 133/81 98 01/10/17 18:30 Room Air Intake and Output 01/12/17 01/12/17 01/13/17 15:00 23:00 07:00 Intake Total 1500 ml 1600 ml Output Total 2000 ml 2625 ml Balance -500 ml -1025 ml Results Result Diagram: 01/13/17 0415 01/13/17 0445 HELEN BRASWELL M.D. Jan 13, 2017 16:48
--- NOTE | 2017-01-13 17:10 | PN ---
Date/Time of Note Date/Time of Note DATE: 01/13/17 TIME: 17:08 Assessment/Plan VTE Prophylaxis VTE Prophylaxis Intervention: SCD's Lines/Catheters [facility] Peripheral IV Urinary Cath still in place: No Assessment/Plan Chief Complaint/Hosp Course ASSESSMENT AND PLAN: 1. 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 Chavis. Advance diet per surgery. Continue Dilaudid p.r.n. for pain and Zofran p.r.n. for nausea. 2. Hypertension by history. Patient is currently normotensive. 3. Paroxysmal atrial fibrillation by history. Continue Protonix for peptic ulcer disease. Continue heparin for deep venous thrombosis prophylaxis. Further recommendations based on clinical course. Plan of care discussed with Dr. Reese. Problems: Subjective 24 Hr Interval Summary Free Text/Dictation Patient is walking in the hallway, tolerated clear liquid diet well, diet is progressed to mechanical soft per surgery, denies any fever pain is well controlled. Exam/Review of Systems Vital Signs Vitals Vital Signs Date Time Temp Pulse Resp B/P Pulse Ox O2 Delivery O2 Flow Rate FiO2 01/13/17 07:00 98.3 69 20 133/81 98 01/10/17 18:30 Room Air Intake and Output 01/12/17 01/12/17 01/13/17 15:00 23:00 07:00 Intake Total 1500 ml 1600 ml Output Total 2000 ml 2625 ml Balance -500 ml -1025 ml Exam PHYSICAL ASSESSMENT: GENERAL: Well-developed, well-nourished male in no acute distress. HEENT: Head is atraumatic, normocephalic. PERRLA. NECK: Supple, no cervical lymphadenopathy, no thyromegaly. CHEST: Clear bilaterally. There is no rhonchi, wheezes, rales noted. The patient has a right chest Perm-A-Cath. CARDIOVASCULAR: Normal S1, S2. No murmurs, gallops, clicks, rubs noted. ABDOMEN: Status post surgery with a dry, clean and intact dressing. GENITOURINARY: The patient has a Mann catheter with yellow urine. EXTREMITIES: There is no edema, clubbing, cyanosis. Pulses equal bilaterally 2 +. SKIN: No rash, petechiae noted. NEUROLOGIC: Patient is awake, alert and oriented x3. Results Result Diagram: 01/13/17 0415 01/13/17 0445 Results 24 hrs Laboratory Tests Test 01/13/17 04:15 01/13/17 04:45 Basophils # 0.0 Basophils % 0.5 Eosinophils # 0.5 Eosinophils % 7.2 H Hematocrit 35.6 L Hemoglobin 11.7 L Lymphocytes # 1.7 Lymphocytes % 26.0 Mean Corpuscular Hemoglobin 30.4 Mean Corpuscular Hemoglobin Concent 32.9 Mean Corpuscular Volume 92.5 Mean Platelet Volume 10.1 Monocytes # 0.4 Monocytes % 6.3 Neutrophils # 3.8 Neutrophils % 59.7 Nucleated Red Blood Cells # 0.0 Nucleated Red Blood Cells % 0.0 Platelet Count 180 Red Blood Count 3.85 L Red Cell Distribution Width 15.2 H White Blood Count 6.4 # Anion Gap 13 Blood Urea Nitrogen 6 L Calcium Level 8.1 L Carbon Dioxide Level 27 Chloride Level 104 Creatinine 0.62 Glucose Level 82 Potassium Level 3.8 Sodium Level 140 Medications Medications Current Medications Hydromorphone HCl (Dilaudid) 0.2 mg Q2H PRN IV PAIN LEVEL 1-5; Start 01/10/17 at 14:00 Diphenhydramine HCl (Benadryl) 25 mg Q4H PRN IV PRURITUS; Start 01/10/17 at 14: 00 Ondansetron HCl (Zofran Inj) 4 mg Q6H PRN IV NAUSEA AND/OR VOMITING; Start 01/10 at 14:00 Naloxone HCl 0.2 mg 0.2 mg Q2M PRN IV FOR RESP RATE 8 OR LESS; Start 01/10/17 at 14:00 Potassium Chloride/Dextrose/ Sod Cl (D5-1/2ns + KCl 20 Meq) 1,000 ml @ 100 mls/ hr Q10H IV Last administered on 01/13/17 02:08; Admin Dose 100 MLS/HR; Start 01/10/17 at 14:08 Acetaminophen/ Hydrocodone Bitart ([place] (5/325)) 1 tab Q4H PRN PO PAIN LEVEL 4 -7; Start 01/10/17 at 14:30 Acetaminophen/ Hydrocodone Bitart ([place] (5/325)) 2 tab Q4H PRN PO PAIN LEVEL 7 -10 Last administered on 01/12/17 08:48; Admin Dose 2 TAB; Start 01/10/17 at 14: 30 Hydromorphone HCl (Dilaudid) 0.5 mg Q2 PRN IV PAIN; Start 01/10/17 at 14:30 Hydromorphone HCl (Dilaudid) 1 mg Q2 PRN IV PAIN; Start 01/10/17 at 14:30 Docusate Sodium (Colace) 100 mg BID PRN PO CONSTIPATION; Start 01/10/17 at 14:30 Bisacodyl (Dulcolax Supp) 10 mg BID PRN ND CONSTIPATION; Start 01/10/17 at 14:30 Sodium Biphosphate/ Sodium Phosphate (Fleet Enema) 133 ml BID PRN ND CONSTIPATION; Start 01/10/17 at 14:30 Heparin Sodium (Porcine) (Heparin (5000 Units/0.5 ml)) 5,000 unit BID SC Last administered on 01/13/17 08:27; Admin Dose 5,000 UNIT; Start 01/11/17 at 09:00 Docusate Sodium (Colace) 100 mg BID PO Last administered on 01/13/17 08:25; Admin Dose 100 MG; Start 01/12/17 at 21:00 Sodium Biphosphate/ Sodium Phosphate (Fleet Enema) 133 ml BID ND ; Start at 21:00 Bisacodyl 10 mg 10 mg BID ND ; Start 01/12/17 at 21:00 Ciprofloxacin/ Dextrose (Cipro Ivpb) 200 ml @ 200 mls/hr Q12 IVPB Last administered on 01/13/17 10:17; Admin Dose 200 MLS/HR; Start 01/13/17 at 10:00 ; Stop 01/14/17 at 20:59 Pantoprazole (Protonix Tab) 40 mg DAILY@06 PO ; Start 01/14/17 at 06:00 JUAN JOSE JEREZ Jan 13, 2017 17:10
[2017-01-13 19:17] VITALS: BP 136/71; RESP 19
[2017-01-14] MEDS: D5W-0.45 NACL + KCL 20 MEQ 1,000 ML IV SCH ×2 (00:08→08:01)
[2017-01-14 05:12] LABS: ADD SCAN DIFF NO
[2017-01-14 05:15] LABS: BASOPHILS % 0.4 % (0.0-2.0); EOSINOPHILS # 0.4 10^3/ul (0.0-0.5); EOSINOPHILS % 6.9 % (0.0-7.0); HEMATOCRIT 34.7 % (42.0-52.0); HEMOGLOBIN 11.3 g/dl (14.0-18.0); LYMPHOCYTES # 1.7 10^3/ul (0.8-2.9); LYMPHOCYTES % 31.4 % (15.0-51.0); MEAN CORPUSCULAR HEMOGLOBIN 29.8 pg (29.0-33.0); MEAN CORPUSCULAR HGB CONC 32.6 g/dl (32.0-37.0); MEAN CORPUSCULAR VOLUME 91.6 fl (82.0-101.0); MEAN PLATELET VOLUME 9.4 fl (7.4-10.4); MONOCYTE # 0.4 10^3/ul (0.3-0.9); MONOCYTES % 7.6 % (0.0-11.0); NEUTROPHIL # 2.9 10^3/ul (1.6-7.5); NEUTROPHILS % 53.5 % (39.0-77.0); PLATELET COUNT 221 10^3/UL (140-415); RED BLOOD COUNT 3.79 10^6/ul (4.70-6.10); RED CELL DISTRIBUTION WIDTH 15.2 % (11.5-14.5); WHITE BLOOD COUNT 5.4 10^3/ul (4.8-10.8)
[2017-01-14 05:20] LABS: POTASSIUM 4.1 mmol/L (3.5-5.1)
[2017-01-14 05:23] LABS: CREATININE 0.72 mg/dl (0.61-1.24)
[2017-01-14 05:24] LABS: CALCIUM 8.6 mg/dl (8.4-10.2)
[2017-01-14] MEDS ORDERED: PANTOPRAZOLE (EC) 40 MG TAB PO SCH (06:00)
[2017-01-14 07:36] VITALS: BP 126/76; RESP 18
[2017-01-14] MEDS: NA PHOSPHATE/BIPHOS 133 ML ENEMA PR SCH (09:00)
[2017-01-14] MEDS: BISACODYL 10 MG SUPP PR SCH ×2 (09:00→11:01)
[2017-01-14] MEDS: DOCUSATE SODIUM 100 MG CAP PO SCH (09:14)
[2017-01-14] MEDS: HEPARIN 5,000 UNIT/0.5 ML SYG SC SCH (09:19)
[2017-01-14] MEDS: CIPROFLOXACIN 400MG/D5W 200 ML IVPB SCH (09:20)
--- NOTE | 2017-01-14 15:58 | PN ---
Date/Time of Note Date/Time of Note DATE: 01/14/17 TIME: 15:56 Assessment/Plan VTE Prophylaxis VTE Prophylaxis Intervention: heparin Lines/Catheters IV Catheter Type (from [facility]): Saline Lock Urinary Cath still in place: No Assessment/Plan Assessment/Plan 1. 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 Chavis. Advance diet per surgery. Continue Dilaudid p.r.n. for pain and Zofran p.r.n. for nausea. 2. Hypertension by history. Patient is currently normotensive. 3. Paroxysmal atrial fibrillation by history. Continue Protonix for peptic ulcer disease. Continue heparin for deep venous thrombosis prophylaxis. Further recommendations based on clinical course. Plan of care discussed with Dr. Reese. Subjective 24 Hr Interval Summary Eyes: no complaints ENT: no complaints Respiratory: no complaints Cardiovascular: no complaints Gastrointestinal: no complaints Genitourinary: no complaints Musculoskeletal: no complaints Skin: no complaints Neurologic: no complaints Endocrine: no complaints Lymphatic: no complaints Psychological: nl mood/affect Immunologic: no complaints Exam/Review of Systems Vital Signs Vitals Vital Signs Date Time Temp Pulse Resp B/P Pulse Ox O2 Delivery O2 Flow Rate FiO2 01/14/17 07:36 98.3 71 18 126/76 98 01/10/17 18:30 Room Air Intake and Output 01/13/17 01/13/17 01/14/17 15:00 23:00 07:00 Intake Total 700 ml 1140 ml 1800 ml Output Total 1500 ml 1450 ml Balance 700 ml -360 ml 350 ml Exam Constitutional: alert, oriented, well developed Psych: nl mood/affect Head: atraumatic Eyes: EOMI, PERRL, nl sclera ENMT: nl external ears & nose Neck: non-tender Respiratory: clear to auscultation Cardiovascular: nl pulses Gastrointestinal: non-tender, soft Musculoskeletal: nl extremities to inspection Extremities: normal pulses Neurological: nl mental status, nl speech Skin: other Lymph: nontender Results Result Diagram: 01/14/17 0414 01/14/17 0414 Results 24 hrs Laboratory Tests Test 01/14/17 04:14 Anion Gap 13 Basophils # 0.0 Basophils % 0.4 Blood Urea Nitrogen 6 L Calcium Level 8.6 Carbon Dioxide Level 28 Chloride Level 105 Creatinine 0.72 Eosinophils # 0.4 Eosinophils % 6.9 Glucose Level 91 Hematocrit 34.7 L Hemoglobin 11.3 L Lymphocytes # 1.7 Lymphocytes % 31.4 Mean Corpuscular Hemoglobin 29.8 Mean Corpuscular Hemoglobin Concent 32.6 Mean Corpuscular Volume 91.6 Mean Platelet Volume 9.4 Monocytes # 0.4 Monocytes % 7.6 Neutrophils # 2.9 Neutrophils % 53.5 Nucleated Red Blood Cells # 0.0 Nucleated Red Blood Cells % 0.0 Platelet Count 221 # Potassium Level 4.1 Red Blood Count 3.79 L Red Cell Distribution Width 15.2 H Sodium Level 142 White Blood Count 5.4 Medications Medications Current Medications Hydromorphone HCl (Dilaudid) 0.2 mg Q2H PRN IV PAIN LEVEL 1-5; Start 01/10/17 at 14:00 Diphenhydramine HCl (Benadryl) 25 mg Q4H PRN IV PRURITUS; Start 01/10/17 at 14: 00 Ondansetron HCl (Zofran Inj) 4 mg Q6H PRN IV NAUSEA AND/OR VOMITING; Start 01/10 at 14:00 Naloxone HCl 0.2 mg 0.2 mg Q2M PRN IV FOR RESP RATE 8 OR LESS; Start 01/10/17 at 14:00 Potassium Chloride/Dextrose/ Sod Cl (D5-1/2ns + KCl 20 Meq) 1,000 ml @ 100 mls/ hr Q10H IV Last administered on 01/14/17 00:08; Admin Dose 100 MLS/HR; Start 01/10/17 at 14:08 Acetaminophen/ Hydrocodone Bitart ([place] (5/325)) 1 tab Q4H PRN PO PAIN LEVEL 4 -7; Start 01/10/17 at 14:30 Acetaminophen/ Hydrocodone Bitart ([place] (5/325)) 2 tab Q4H PRN PO PAIN LEVEL 7 -10 Last administered on 01/12/17 08:48; Admin Dose 2 TAB; Start 01/10/17 at 14: 30 Hydromorphone HCl (Dilaudid) 0.5 mg Q2 PRN IV PAIN; Start 01/10/17 at 14:30 Hydromorphone HCl (Dilaudid) 1 mg Q2 PRN IV PAIN; Start 01/10/17 at 14:30 Docusate Sodium (Colace) 100 mg BID PRN PO CONSTIPATION; Start 01/10/17 at 14:30 Bisacodyl (Dulcolax Supp) 10 mg BID PRN CA CONSTIPATION; Start 01/10/17 at 14:30 Sodium Biphosphate/ Sodium Phosphate (Fleet Enema) 133 ml BID PRN CA CONSTIPATION; Start 01/10/17 at 14:30 Heparin Sodium (Porcine) (Heparin (5000 Units/0.5 ml)) 5,000 unit BID SC Last administered on 01/14/17 09:19; Admin Dose 5,000 UNIT; Start 01/11/17 at 09:00 Docusate Sodium (Colace) 100 mg BID PO Last administered on 01/14/17 09:14; Admin Dose 100 MG; Start 01/12/17 at 21:00 Sodium Biphosphate/ Sodium Phosphate (Fleet Enema) 133 ml BID CA ; Start at 21:00 Bisacodyl 10 mg 10 mg BID CA Last administered on 01/14/17 11:01; Admin Dose 10 MG; Start 01/12/17 at 21:00 Ciprofloxacin/ Dextrose (Cipro Ivpb) 200 ml @ 200 mls/hr Q12 IVPB Last administered on 01/14/17 09:20; Admin Dose 200 MLS/HR; Start 01/13/17 at 10:00 ; Stop 01/14/17 at 20:59 Pantoprazole (Protonix Tab) 40 mg DAILY@06 PO Last administered on 01/14/17 05 :51; Admin Dose 40 MG; Start 01/14/17 at 06:00 DREAD CRISOSTOMO Jan 14, 2017 15:58
--- NOTE | 2017-01-14 16:10 | DS ---
Date/Time of Note Date/Time of Note DATE: 01/14/17 TIME: 16:10 Discharge Summary Admission/Discharge Info Admit Date/Time Jan 10, 2017 at 05:34 Discharge Date/Time Hospital Course ASSESSMENT AND PLAN: 1. 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 Chavis. Advance diet per surgery. Continue Dilaudid p.r.n. for pain and Zofran p.r.n. for nausea. 2. Hypertension by history. Patient is currently normotensive. 3. Paroxysmal atrial fibrillation by history. Continue Protonix for peptic ulcer disease. Continue heparin for deep venous thrombosis prophylaxis. Further recommendations based on clinical course. Plan of care discussed with Dr. Reese. Home Meds Reported Medications Ondansetron Hcl* (Ondansetron Hcl*) 8 Mg Tablet, 8 MG PO Q6H Y for NAUSEA AND OR VOMITING, TAB 01/09/17 Pending Labs Laboratory Tests Test 01/14/17 04:14 Anion Gap 13 (8-16) Basophils # 0.010^3/ul (0.0-0.1) Basophils % 0.4% (0.0-2.0) Blood Urea Nitrogen 6mg/dl (7-20) Calcium Level 8.6mg/dl (8.4-10.2) Carbon Dioxide Level 28mmol/L (21-31) Chloride Level 105mmol/L (97-110) Creatinine 0.72mg/dl (0.61-1.24) Eosinophils # 0.410^3/ul (0.0-0.5) Eosinophils % 6.9% (0.0-7.0) Glucose Level 91mg/dl (70-220) Hematocrit 34.7% (42.0-52.0) Hemoglobin 11.3g/dl (14.0-18.0) Lymphocytes # 1.710^3/ul (0.8-2.9) Lymphocytes % 31.4% (15.0-51.0) Mean Corpuscular Hemoglobin 29.8pg (29.0-33.0) Mean Corpuscular Hemoglobin Concent 32.6g/dl (32.0-37.0) Mean Corpuscular Volume 91.6fl (82.0-101.0) Mean Platelet Volume 9.4fl (7.4-10.4) Monocytes # 0.410^3/ul (0.3-0.9) Monocytes % 7.6% (0.0-11.0) Neutrophils # 2.910^3/ul (1.6-7.5) Neutrophils % 53.5% (39.0-77.0) Nucleated Red Blood Cells # 0.010^3/ul (0.0-0.0) Nucleated Red Blood Cells % 0.0/100WBC (0.0-0.0) Platelet Count 49847^3/UL (140-415) Potassium Level 4.1mmol/L (3.5-5.1) Red Blood Count 3.7910^6/ul (4.70-6.10) Red Cell Distribution Width 15.2% (11.5-14.5) Sodium Level 142mmol/L (135-144) White Blood Count 5.410^3/ul (4.8-10.8) DREAD CRISOSTOMO Jan 14, 2017 16:10
--- NOTE | 2017-01-14 16:10 | PN ---
Date/Time of Note Date/Time of Note DATE: 01/14/17 TIME: 16:05 Assessment/Plan Lines/Catheters IV Catheter Type (from Nrs): Saline Lock Mann in Place (from Nrs): No Assessment/Plan Assessment/Plan [facility] Progress Note Date of Service: 01/14/17 Today's Impression & Plan: Overall doing well post op without major issues. No major wound problems. Tolerated regular diet. Showing signs of return of bowel function. Ok to d/c today. With above assessment, I've recommended the following for today: 1. D/c home 2. Needs reinforcement regarding need for lifetime proton pump inhibition ( Pantoprazole or equivalent) 3. Please include the following on d/c instruction: Please call [phone] if any of fever, nausea, vomiting, discharge from wound , wound redness, increase or sudden pain, blood in stool or vomit, or any other unusual signs or symptoms. Also, please call the same number in a few days to schedule an appointment for your follow up visit. Patient may remove dressings tomorrow. Showers OK starting tomorrow. No swimming , hot tub or bath for 2 weeks. No lifting more than 25 lbs for 8 weeks. Thank you again for your great care of this very pleasant patient and wonderful family. If there are any questions, please feel free to call me at [phone]. TOTAL VISIT TIME: 20 minutes of which more than half was spent in [id number] discussion with the patient, possibly including family, as well as coordination of care between multiple physicians and providers. Disclaimer: Inadvertent spelling or grammatical errors are likely due to EHR/ dictation software use and do not reflect on the overall quality of patient care. Updated Clinical Summary: The patient is a very pleasant 65-year-old gentleman well known to me from prior visit, with past medical history significant for obesity (BMI 32.7), bilateral knee and other joint pain, and hypertension, who was initially admitted [facility] through ED on 04/07/2016 with 1 day history of abdominal pain associated with nausea and vomiting (4). Patient's emergency department workup included laboratory values that showed a normal white blood cell count of 9.8 and platelet count of 346, elevated creatinine at 1.25 and CO2 of 25. LFTs were normal. INR was 1.11. CT scan showed small foci of intra-abdominal free air compatible with bowel perforation. This was presumably in the region of the gastric antrum which was surrounded by some inflammatory changes and mildly enlarged lymph nodes. Underlying ulcer, gastritis or neoplasm wearing the differential. After consultation I decided to wait and not immediately operate on the patient given his normal hemodynamics and laboratory values. We were, however, sufficiently concerned for the patient's abdominal pain. On hospital day #2, the patient showed ongoing abdominal pain and elevation in white blood cell count to 17 and tachycardia. For this reason, patient underwent laparoscopic repair of perforated gastric ulcer with Sukh patch and abdominal lavage on 04/07/2016. Upper GI neg 04/11/16. Drain d/c'd 04/13/16. L hand cellulitis, improved with antimicrobial treatment and time in hospital. D/c'd home 04/20/16. Readmitted 05/02/16 with anemia. EGD x 2 showed ulcer dz and no obvious evidence for malignancy. D/c home 05/10; readmitted on 05/14 and d/c 05/16; fainted on way to see us in the office on 05/25, but neg ED w/u; readmitted for a third time since that operation on 07/15/16 for gastric outlet obstruction and GI bleeding. Ongoing issues with weight loss. Could not tolerate much oral intake. 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 EGD 07/25/16 showed small opening that made attempt at stenting possible. Started TPN 07/27/16. S/p endoscopic duodenal stent placement 07/28/16. Dx lap 08/01/16 showed no obvious evidence of widespread metastasis. Few areas biopsied and path showed no malignancy in the biopsied areas or in the cytology sample sent. Patient s/p 12 cycles of FOLFOX ending 12/01/16 (no Avastin; Her2 negative tumor). Patient developed loculated pneumothorax and empyema that was treated with Heimlich valve placement ( pathology from pleural fluid negative for malignant cells). On 01/10/17, s/p laparoscopic exploration with laparoscopic wedge liver biopsy x2 as well as falciform ligament biopsy, with open subtotal gastrectomy, celiac artery lymph node dissection, hepatic artery lymph node biopsy, celiac artery lymph node biopsy, splenic artery lymph node biopsy, abdominal lavage, omentectomy, and lysis of adhesions were performed with findings of malignancy in distal stomach. Comorbidities: 1. Gastric malignancy, s/p neoadjuvant chemotherapy. On 01/10/17, s/p laparoscopic exploration with laparoscopic wedge liver biopsy x2 as well as falciform ligament biopsy, with open subtotal gastrectomy, celiac artery lymph node dissection, hepatic artery lymph node biopsy, celiac artery lymph node biopsy, splenic artery lymph node biopsy, abdominal lavage, omentectomy, and lysis of adhesions were performed with findings of malignancy in distal stomach. 2. Bilateral knee and other joint pain 3. Hypertension 4. Gastric perforation 04/21 5. Laparoscopic repair for gastric perforation 04/21 Final Path: MICROSCOPIC DIAGNOSIS: A-Falciform ligament, biopsy: -- Fibroadipose and fibrocollagenous tissue showing focal foreign body giant cell reaction to plant material. -- There is no evidence of malignancy. B-Liver wedge biopsy segment #2: -- Segment of liver showing an intracapsular fragment of plant material with foreign body giant cell reaction and fibrosis. -- Chronic inflammation of adjacent portal zones, mild. -- There is no evidence of malignancy. C-Liver wedge biopsy segment #4B: -- Focal capsular foreign body giant cell reaction to plant material. -- There is no evidence of malignancy. D-Falciform ligament #2: -- Fibrocollagenous and adipose tissue showing vascular congestion. -- There is no evidence of malignancy. E-Hepatic artery lymph node: -- Reactive follicular hyperplasia and mild sinus histiocytosis. -- There is no evidence of malignancy. F-Stomach and duodenum, partial resection: -- Adenocarcinoma, moderately-differentiated, intestinal type, diffusely involving the lesser curvature, posterior wall and greater curvature of the pylorus. -- Maximum tumor diameter 4.0 cm. -- Carcinoma penetrates through the muscularis propria into greater curvature and lesser curvature adipose tissue and subserosa. -- There is no involvement of visceral serosa by tumor. -- Lymph-vascular or perineural invasion is not identified. -- Proximal gastric, distal duodenal and radial margins of resection are clear of tumor. -- Metastatic carcinoma is present in lymph nodes in the greater curvature, adjacent to the tumor (4/24). -- Chronic gastric, mild and patchy involving oxyntic and antral mucosa. G-Omentum: -- No significant histopathological abnormalities are identified. -- There is no evidence of malignancy. H-Celiac artery lymph node: -- One lymph node shows reactive follicular hyperplasia. -- There is no evidence of malignancy. I-Splenic artery lymph node: -- One lymph node shows reactive follicular hyperplasia. -- There is no evidence of malignancy. J-Omentum #2: -- A focus of embedded plant material with foreign body giant cell reaction. -- Moderate vascular congestion. -- There is no evidence of malignancy. SYNOPTIC CASE SUMMARY: SPECIMEN: Gastric antrum and proximal duodenum. PROCEDURE: Partial gastrectomy, distal. TUMOR SITE: Lesser curvature and adjacent upper anterior pylorus; posterior wall and greater curvature of pylorus (partially circumferential). TUMOR SIZE: Greatest dimension 4.0 cm (x 3.0 x 1.4 cm). HISTOLOGIC TYPE: Adenocarcinoma, intestinal type. HISTOLOGIC GRADE: Grade 2, moderately-differentiated. MICROSCOPIC EXTENT TUMOR: Tumor invades through muscularis propria into subserosa and adipose tissue of the greater and lesser curvatures. There is no visceral peritoneal involvement by carcinoma. MARGINS: All margins are uninvolved carcinoma. Distance of carcinoma from closest margin: Carcinoma is 5.0 cm from the distal duodenal margin. Proximal gastric and radial (omental) margins: Uninvolved by carcinoma. TREATMENT EFFECT: No definite response identified (grade 3, poor to no response ). LYMPH-VASCULAR INVASION: Not identified PERINEURAL INVASION: Not identified. REGIONAL LYMPH NODES: Number of lymph nodes examined: 27. Number of lymph nodes involved: 4 (four greater curvature lymph nodes are involved by metastatic carcinoma - 03/02). ADDITIONAL PATHOLOGIC FINDINGS: -- Chronic gastritis, mild and patchy. -- Extensive ulceration of tumor surface. -- Focal acute ulceration of duodenal mucosa. -- Foreign body giant cell reaction to subserosal suture beneath the attached omentum at the anterior lesser curvature. -- Focal foreign body giant cell reaction to vegetable matter in biopsies of falciform ligament and liver capsule. ANCILLARY STUDIES: HER2 immunoperoxidase stain pending. Giemsa stain for H. pylori pending. COMMENT: Finding are discussed with Dr. Helen Braswell on 01/12/2017. HER2 by IHC is pending at [facility] and a separate supplemental report of that result will follow. Additionally, a Giemsa stain is pending on the uninvolved gastric mucosa and results will be reported separately. This patient had a previous gastric antral biopsy showing poorly-differentiated adenocarcinoma, intestinal type ([facility] case no. [id number]; 07/19/2016). Subjective: No major events or complaints; no abd pain and under control with medications; no n/v/d; no sob or cp; + flatus; + BM; + activity Objective: Vitals: See below Exam: GENERAL: On exam, the patient was sitting in a chair and appeared to be comfortable and in no acute distress. ABDOMEN: Soft, nontender and nondistended. Incisions are clean, dry and intact without any evidence of erythema, edema, discharge, or hernia. There are no peritoneal signs or guarding. SKIN: Skin appears to be pink and feels warm to touch. NEUROLOGIC: Patient is awake, alert, and follows commands appropriately. Exam/Review of Systems Vital Signs Vitals Vital Signs Date Time Temp Pulse Resp B/P Pulse Ox O2 Delivery O2 Flow Rate FiO2 01/14/17 07:36 98.3 71 18 126/76 98 01/10/17 18:30 Room Air Intake and Output 01/13/17 01/13/17 01/14/17 15:00 23:00 07:00 Intake Total 700 ml 1140 ml 1800 ml Output Total 1500 ml 1450 ml Balance 700 ml -360 ml 350 ml Results Result Diagram: 01/14/17 0414 01/14/17 0414 HELEN BRASWELL M.D. Jan 14, 2017 16:10
--- NOTE | 2017-01-14 16:12 | PDOCDIS ---
Discharge Instructions CONDITION Patient Condition: Stable HOME CARE INSTRUCTIONS: Special Diet: Clear liquid diet ACTIVITY: Activity Restrictions: Slowly Increase Activity Rest between Activity Avoid heavy lifting FOLLOW UP/APPOINTMENTS Appointments FU with primary MD X 1 WEEK FU with surgeon as recommended. Call 911 or go to the nearest hospital if symptoms worsen- patient verbalized understanding discharge instructions DREAD CRISOSTOMO Jan 14, 2017 16:12
--- NOTE | 2017-01-14 16:15 | DS ---
Date/Time of Note Date/Time of Note DATE: 01/14/17 TIME: 16:11 Discharge Summary Admission/Discharge Info Admit Date/Time Jan 10, 2017 at 05:34 Discharge Date/Time Final Diagnosis 1. Gastric malignancy, s/p neoadjuvant chemotherapy. On 01/10/17, s/p laparoscopic exploration with laparoscopic wedge liver biopsy x2 as well as falciform ligament biopsy, with open subtotal gastrectomy, celiac artery lymph node dissection, hepatic artery lymph node biopsy, celiac artery lymph node biopsy, splenic artery lymph node biopsy, abdominal lavage, omentectomy, and lysis of adhesions were performed with findings of malignancy in distal stomach. 2. Bilateral knee and other joint pain 3. Hypertension 4. Gastric perforation 04/21 5. Laparoscopic repair for gastric perforation 04/21 Patient Condition: Good Hospital Course Updated Clinical Summary: The patient is a very pleasant 65-year-old gentleman well known to me from prior visit, with past medical history significant for obesity (BMI 32.7), bilateral knee and other joint pain, and hypertension, who was initially admitted to [facility] through ED on 04/07/2016 with 1 day history of abdominal pain associated with nausea and vomiting (4). Patient's emergency department workup included laboratory values that showed a normal white blood cell count of 9.8 and platelet count of 346, elevated creatinine at 1.25 and CO2 of 25. LFTs were normal. INR was 1.11. CT scan showed small foci of intra-abdominal free air compatible with bowel perforation. This was presumably in the region of the gastric antrum which was surrounded by some inflammatory changes and mildly enlarged lymph nodes. Underlying ulcer, gastritis or neoplasm wearing the differential. After consultation I decided to wait and not immediately operate on the patient given his normal hemodynamics and laboratory values. We were, however, sufficiently concerned for the patient's abdominal pain. On hospital day #2, the patient showed ongoing abdominal pain and elevation in white blood cell count to 17 and tachycardia. For this reason, patient underwent laparoscopic repair of perforated gastric ulcer with Sukh patch and abdominal lavage on 04/07/2016. Upper GI neg 04/11/16. Drain d/c'd 04/13/16. L hand cellulitis, improved with antimicrobial treatment and time in hospital. D/c'd home 04/20/16. Readmitted 05/02/16 with anemia. EGD x 2 showed ulcer dz and no obvious evidence for malignancy. D/c home 05/10; readmitted on 05/14 and d/c 05/16; fainted on way to see us in the office on 05/25, but neg ED w/u; readmitted for a third time since that operation on 07/15/16 for gastric outlet obstruction and GI bleeding. Ongoing issues with weight loss. Could not tolerate much oral intake. 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 EGD 07/25/16 showed small opening that made attempt at stenting possible. Started TPN 07/27/16. S/p endoscopic duodenal stent placement 07/28/16. Dx lap 08/01/16 showed no obvious evidence of widespread metastasis. Few areas biopsied and path showed no malignancy in the biopsied areas or in the cytology sample sent. Patient s/p 12 cycles of FOLFOX ending 12/01/16 (no Avastin; Her2 negative tumor). Patient developed loculated pneumothorax and empyema that was treated with Heimlich valve placement ( pathology from pleural fluid negative for malignant cells). On 01/10/17, s/p laparoscopic exploration with laparoscopic wedge liver biopsy x2 as well as falciform ligament biopsy, with open subtotal gastrectomy, celiac artery lymph node dissection, hepatic artery lymph node biopsy, celiac artery lymph node biopsy, splenic artery lymph node biopsy, abdominal lavage, omentectomy, and lysis of adhesions were performed with findings of malignancy in distal stomach. Comorbidities: 1. Gastric malignancy, s/p neoadjuvant chemotherapy. On 01/10/17, s/p laparoscopic exploration with laparoscopic wedge liver biopsy x2 as well as falciform ligament biopsy, with open subtotal gastrectomy, celiac artery lymph node dissection, hepatic artery lymph node biopsy, celiac artery lymph node biopsy, splenic artery lymph node biopsy, abdominal lavage, omentectomy, and lysis of adhesions were performed with findings of malignancy in distal stomach. 2. Bilateral knee and other joint pain 3. Hypertension 4. Gastric perforation 04/21 5. Laparoscopic repair for gastric perforation 04/21 Final Path: MICROSCOPIC DIAGNOSIS: A-Falciform ligament, biopsy: -- Fibroadipose and fibrocollagenous tissue showing focal foreign body giant cell reaction to plant material. -- There is no evidence of malignancy. B-Liver wedge biopsy segment #2: -- Segment of liver showing an intracapsular fragment of plant material with foreign body giant cell reaction and fibrosis. -- Chronic inflammation of adjacent portal zones, mild. -- There is no evidence of malignancy. C-Liver wedge biopsy segment #4B: -- Focal capsular foreign body giant cell reaction to plant material. -- There is no evidence of malignancy. D-Falciform ligament #2: -- Fibrocollagenous and adipose tissue showing vascular congestion. -- There is no evidence of malignancy. E-Hepatic artery lymph node: -- Reactive follicular hyperplasia and mild sinus histiocytosis. -- There is no evidence of malignancy. F-Stomach and duodenum, partial resection: -- Adenocarcinoma, moderately-differentiated, intestinal type, diffusely involving the lesser curvature, posterior wall and greater curvature of the pylorus. -- Maximum tumor diameter 4.0 cm. -- Carcinoma penetrates through the muscularis propria into greater curvature and lesser curvature adipose tissue and subserosa. -- There is no involvement of visceral serosa by tumor. -- Lymph-vascular or perineural invasion is not identified. -- Proximal gastric, distal duodenal and radial margins of resection are clear of tumor. -- Metastatic carcinoma is present in lymph nodes in the greater curvature, adjacent to the tumor (4/24). -- Chronic gastric, mild and patchy involving oxyntic and antral mucosa. G-Omentum: -- No significant histopathological abnormalities are identified. -- There is no evidence of malignancy. H-Celiac artery lymph node: -- One lymph node shows reactive follicular hyperplasia. -- There is no evidence of malignancy. I-Splenic artery lymph node: -- One lymph node shows reactive follicular hyperplasia. -- There is no evidence of malignancy. J-Omentum #2: -- A focus of embedded plant material with foreign body giant cell reaction. -- Moderate vascular congestion. -- There is no evidence of malignancy. SYNOPTIC CASE SUMMARY: SPECIMEN: Gastric antrum and proximal duodenum. PROCEDURE: Partial gastrectomy, distal. TUMOR SITE: Lesser curvature and adjacent upper anterior pylorus; posterior wall and greater curvature of pylorus (partially circumferential). TUMOR SIZE: Greatest dimension 4.0 cm (x 3.0 x 1.4 cm). HISTOLOGIC TYPE: Adenocarcinoma, intestinal type. HISTOLOGIC GRADE: Grade 2, moderately-differentiated. MICROSCOPIC EXTENT TUMOR: Tumor invades through muscularis propria into subserosa and adipose tissue of the greater and lesser curvatures. There is no visceral peritoneal involvement by carcinoma. MARGINS: All margins are uninvolved carcinoma. Distance of carcinoma from closest margin: Carcinoma is 5.0 cm from the distal duodenal margin. Proximal gastric and radial (omental) margins: Uninvolved by carcinoma. TREATMENT EFFECT: No definite response identified (grade 3, poor to no response ). LYMPH-VASCULAR INVASION: Not identified PERINEURAL INVASION: Not identified. REGIONAL LYMPH NODES: Number of lymph nodes examined: 27. Number of lymph nodes involved: 4 (four greater curvature lymph nodes are involved by metastatic carcinoma - 4/). ADDITIONAL PATHOLOGIC FINDINGS: -- Chronic gastritis, mild and patchy. -- Extensive ulceration of tumor surface. -- Focal acute ulceration of duodenal mucosa. -- Foreign body giant cell reaction to subserosal suture beneath the attached omentum at the anterior lesser curvature. -- Focal foreign body giant cell reaction to vegetable matter in biopsies of falciform ligament and liver capsule. ANCILLARY STUDIES: HER2 immunoperoxidase stain pending. Giemsa stain for H. pylori pending. COMMENT: Finding are discussed with Dr. Helen Braswell on 01/12/2017. HER2 by IHC is pending at [facility] and a separate supplemental report of that result will follow. Additionally, a Giemsa stain is pending on the uninvolved gastric mucosa and results will be reported separately. This patient had a previous gastric antral biopsy showing poorly-differentiated adenocarcinoma, intestinal type ([facility] case no. [id number]; 07/19/2016). Hospital Course: Post op, patient did very well without any evidence for major post-operative complication or wound problems. By the time of discharge, patient was tolerating a regular diet, had adequate pain control on oral pain medications, had shown return of bowel activity and was clinically stable. He is therefore being discharged today. In addition to his home meds, we wrote him for: 1. [place] () 2. Colace 3. Dulcolax 4. Pantoprazole lifetime 5. The following were including in discharge instructions: Please call [phone] if any of fever, nausea, vomiting, discharge from wound , wound redness, increase or sudden pain, blood in stool or vomit, or any other unusual signs or symptoms. Also, please call the same number in a few days to schedule an appointment for your follow up visit. Patient may remove dressings tomorrow. Showers OK starting tomorrow. No swimming , hot tub or bath for 2 weeks. No lifting more than 25 lbs for 8 weeks. Internal Medicine ASSESSMENT AND PLAN: 1. 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 Braswell. Advance diet per surgery. Continue Dilaudid p.r.n. for pain and Zofran p.r.n. for nausea. 2. Hypertension by history. Patient is currently normotensive. 3. Paroxysmal atrial fibrillation by history. Continue Protonix for peptic ulcer disease. Continue heparin for deep venous thrombosis prophylaxis. Further recommendations based on clinical course. Plan of care discussed with Dr. Reese. Home Meds Reported Medications Ondansetron Hcl* (Ondansetron Hcl*) 8 Mg Tablet, 8 MG PO Q6H Y for NAUSEA AND OR VOMITING, TAB 01/09/17 Pending Labs Laboratory Tests Test 01/14/17 04:14 Anion Gap 13 (8-16) Basophils # 0.010^3/ul (0.0-0.1) Basophils % 0.4% (0.0-2.0) Blood Urea Nitrogen 6mg/dl (7-20) Calcium Level 8.6mg/dl (8.4-10.2) Carbon Dioxide Level 28mmol/L (21-31) Chloride Level 105mmol/L (97-110) Creatinine 0.72mg/dl (0.61-1.24) Eosinophils # 0.410^3/ul (0.0-0.5) Eosinophils % 6.9% (0.0-7.0) Glucose Level 91mg/dl (70-220) Hematocrit 34.7% (42.0-52.0) Hemoglobin 11.3g/dl (14.0-18.0) Lymphocytes # 1.710^3/ul (0.8-2.9) Lymphocytes % 31.4% (15.0-51.0) Mean Corpuscular Hemoglobin 29.8pg (29.0-33.0) Mean Corpuscular Hemoglobin Concent 32.6g/dl (32.0-37.0) Mean Corpuscular Volume 91.6fl (82.0-101.0) Mean Platelet Volume 9.4fl (7.4-10.4) Monocytes # 0.410^3/ul (0.3-0.9) Monocytes % 7.6% (0.0-11.0) Neutrophils # 2.910^3/ul (1.6-7.5) Neutrophils % 53.5% (39.0-77.0) Nucleated Red Blood Cells # 0.010^3/ul (0.0-0.0) Nucleated Red Blood Cells % 0.0/100WBC (0.0-0.0) Platelet Count 43417^3/UL (140-415) Potassium Level 4.1mmol/L (3.5-5.1) Red Blood Count 3.7910^6/ul (4.70-6.10) Red Cell Distribution Width 15.2% (11.5-14.5) Sodium Level 142mmol/L (135-144) White Blood Count 5.410^3/ul (4.8-10.8) HELEN BRASWELL M.D. Jan 14, 2017 16:14
[2017-01-14] MEDS ORDERED: DOCU-216 PO (16:24)
[2017-01-14] MEDS ORDERED: BISA-57 PO (16:24)
[2017-01-14] MEDS ORDERED: HYDR-906 PO (16:24)
[2017-01-14] MEDS ORDERED: PANT40TA4 PO (16:24)
== END 2017-01-14 17:27 | disposition home or self-care (01) | DRG 327 ==
LOC: REC 05:34 → EDSTATUS 07:30 → MS1 16:00
PROVIDERS: ADMIT Transplant Surgery; ATTEND Transplant Surgery
PROC: 0FB04ZX Excision of Liver, Percutaneous Endoscopic Approach, Diagnostic (ICD-10-PCS; 2017-01-10)
PROC: 07BD0ZX Excision of Aortic Lymphatic, Open Approach, Diagnostic (ICD-10-PCS; 2017-01-10)
PROC: 0D160ZA Bypass Stomach to Jejunum, Open Approach (ICD-10-PCS; principal; 2017-01-10 07:30)
DX: C16.4 Malignant neoplasm of pylorus (principal); C77.2 Secondary and unspecified malignant neoplasm of intra-abdominal lymph nodes; C16.5 Malignant neoplasm of lesser curvature of stomach, unspecified; N39.0 Urinary tract infection, site not specified; S36.531A Laceration of transverse colon, initial encounter; I10 Essential (primary) hypertension; M25.562 Pain in left knee; M25.561 Pain in right knee; Z53.31 Laparoscopic surgical procedure converted to open procedure; Y83.8 Other surgical procedures as the cause of abnormal reaction of the patient, or of later complication, without mention of misadventure at the time of the procedure; Y81.8 Miscellaneous general- and plastic-surgery devices associated with adverse incidents, not elsewhere classified; Y92.234 Operating room of hospital as the place of occurrence of the external cause
CPT/HCPCS: 80048; 80053; 81001; 81003; 83735; 84100; 85025; 85610; 85730; 86850; 86900; 86901; 87086; 88305; 88307; 88309; 88331; C9113; J0131; J0330; J0744; J1100; J1170; J1885; J2250; J2370; J2405; J2543; J2710; J2795; J3010; J3480; P9045

== ENCOUNTER 2017-01-24 15:15 | Outpatient (CLI) | payer OTHER ==
[~2017-01-24 15:15] MED LIST changes: +BISA-57 PO; -BUPIVACAINE 0.25%/EPI (SDV) 30 ML INJ INJ ONE; +DOCU-216 PO; +HYDR-906 PO; +PANT40TA4 PO; -PIPER-TAZO 3.375 GM IV (PMX) 100 ML IVPB ONE
--- NOTE | 2017-01-24 15:54 | PN ---
Date/Time of Note Date/Time of Note DATE: 01/24/17 TIME: 15:10 Outpatient Progress Note Chief Complaint Gastric carcinoma/hypertension/bilateral knee pain/history of paroxysmal A. fib HPI Gastric carcinoma/patient has gastric carcinoma, patient has perforation, patient was recently hospitalized, patient had surgery, no nausea vomiting, abdominal pain, Hypertension/no headache or dizziness, lightheadedness, DJD/patient is joint pain, back pain mild, no difficulty in walking, Review of Systems Const: No Fever, no chills, no Wt. loss, no Fatigue, normal appetite, no diaphoresis. Eyes: No pain, no discharge, no redness, no visual change, no foreign body. ENT: No pain, no bleeding, no congestion, no sore throat, no dysphagia, no discharge or rhinitis. Lymph: No adenopathy, no tender nodes, no lymphedema. Resp: No SOB, no cough, no sputum, no wheezing, no chest pain. CV: No chest pain, no palpitaions, no GAMEZ, no PND, no edema. GI: Normal appetite, no pain, no nausea, no vomiting, no diarrhea, no blood, no constipation. Status post surgery, : No frequency, no urgency, no dysuria, no hematuria, no flank pain, no discharge, no bleeding. Musc: No bone/joint pain, no back pain, no neck pain, no knee pain, no restricted ROM. Skin: No rash, no skin lesions, no erythema, no laceration, no bruising, no pruritus. Neuro: No MCHUGH, no dizziness, no syncope, no seizure, no focal-weakness. Endo: No polyuria, no polydypsia, no dry-skin, no temp-intolerance. Psych: No hallucinations, no depression, no anxiety, no suicidal ideation. Ext: No edema, bilateral knee pain, no ulcer, no weakness. Physical Exam General Appearance: A [A 66] year-old male d] [who appears well-developed, well- nourished, in no acute distress.] HEENT: [Head normocephalic, atraumatic. Pupils equal, round, reactive to light and accommodate. Sclerae are no jaundice. Nasal turbinates pink without erythema or nasal discharge. Mucous membranes pink and moist without lesions. Oropharynx clear without any exudate or discharge.] NECK: [Supple. Trachea midline, No thyromegaly, No cervical lymphadenopathy, No mass, No carotid bruits, No JVD, Carotid pulses 2+ bilaterally.] PULMONARY: [Clear to auscultaion bilaterally, No retractions, Chest expansion symmetric bilaterally, no rales, no ronchi, no dulness on percussion.] CARDIAC: [Normal SI and S2, Regular rate and rythm, no murmur, gallop, or rub.] GASTROINTESTINAL: [Abdomen is soft, non-tender, Non Rigid, No distention, Positive bowel sounds x4 quadrants, Liver normal. Status post abdominal surgery , sean present, no redness, no tenderness, no bleeding or discharge,] SKIN: [Warm, dry, no rash, no bruise, no echmosis.] EXTREMITIES: [Bilateral lower extremities no edema, no phlabitus, pulse palpable , no contracture.] MUSCULOSKELETAL: [Spine Normal, Non-tender, Normal range of motion, No swelling , no deformity, no clubbing, or cyanosis, the patient has no edema to bilateral lower extremities, dorsalis pedis pulses palpable bilaterally.] NEUROLOGIC: [The patient is awake, alert, oriented, responding to yes/no questions appropriately, moving all extremities, cranial nerve intact, normal strenght, normal power, normal coordination, normal gait.] Allergies Coded Allergies: No Known Allergy (Unverified , 01/10/17) PMH Cancer of the stomach/perforation/hypertension/bilateral knee pain Social Hx No smoking or drinking, Family Hx Noncontributory Patient History: Patient reports no known family medical history. Assessment/Plan Impression Gastric carcinoma/hypertension/history of paroxysmal A. fib/bilateral knee pain Plan Patient has no abdominal discomfort, patient postop doing very well, no fever or chills, abdominal discomfort, no distention, able to move bowels, We will repeat CBC and CMP, Patient advised to follow with the surgery, Patient also encouraged to follow with the primary care physician, Medications Home Meds Active Scripts Bisacodyl* (Dulcolax*) 5 Mg Tablet.dr, 10 MG PO DAILY Y for CONSTIPATION for 10 Days, #10 TAB Prov:DREAD CRISOSTOMO 01/14/17 Docusate Sodium (Dok) 100 Mg Capsule, 100 MG PO BID for 30 Days, CAP Prov:DREAD CRISOSTOMO 01/14/17 Pantoprazole* (Pantoprazole*) 40 Mg Tablet.dr, 40 MG PO DAILY@06 for 30 Days Prov:DREAD CRISOSTOMO 01/14/17 Hydrocodone/Acetaminophen ([place] 5-325 Tablet) 1 Each Tablet, 1 EACH PO Q6, #20 TAB Prov:DREAD CRISOSTOMO 01/14/17 Reported Medications Ondansetron Hcl* (Ondansetron Hcl*) 8 Mg Tablet, 8 MG PO Q6H Y for NAUSEA AND OR VOMITING, TAB 01/09/17 SHADI AUGUSTINE MD Jan 24, 2017 15:20
== END 2017-01-24 17:00 | disposition home or self-care (01) ==
LOC: DCC 15:15
PROVIDERS: ATTEND Internal Medicine
DX: C16.9 Malignant neoplasm of stomach, unspecified (principal); I10 Essential (primary) hypertension; I48.91 Unspecified atrial fibrillation; M25.562 Pain in left knee; M25.561 Pain in right knee

== ENCOUNTER 2017-02-01 09:46 | Outpatient (CLI) | payer OTHER ==
[~2017-02-01] VITALS: Ht 167.6 cm; Wt 70.2 kg
[2017-02-01 09:52] VITALS: BP 141/75; PULSE 81; RESP 16; Ht 167.6 cm; Wt 70.2 kg
--- NOTE | 2017-02-01 17:19 | PN ---
Date/Time of Note Date/Time of Note DATE: 02/01/17 TIME: 17:13 Assessment/Plan Assessment/Plan Assessment/Plan [facility] Progress Note Date of Service: 02/01/17 Today's Impression & Plan: Overall doing well post op without major issues. No major wound problems. With above assessment, I've recommended the following for today: 1. F/u with Dr. Costa 2. Cont lifetime proton pump inhibition (Pantoprazole or equivalent) 3. F/u with us prn 4. Multidisciplinary tumor board presentation Thank you again for your great care of this very pleasant patient and wonderful family. If there are any questions, please feel free to call me at [phone]. TOTAL VISIT TIME: 20 minutes of which more than half was spent in [id number] discussion with the patient, possibly including family, as well as coordination of care between multiple physicians and providers. Disclaimer: Inadvertent spelling or grammatical errors are likely due to EHR/ dictation software use and do not reflect on the overall quality of patient care. Updated Clinical Summary: The patient is a very pleasant 65-year-old gentleman well known to me from prior visit, with past medical history significant for obesity (BMI 32.7), bilateral knee and other joint pain, and hypertension, who was initially admitted to [facility] through ED on 04/07/2016 with 1 day history of abdominal pain associated with nausea and vomiting (4). Patient's emergency department workup included laboratory values that showed a normal white blood cell count of 9.8 and platelet count of 346, elevated creatinine at 1.25 and CO2 of 25. LFTs were normal. INR was 1.11. CT scan showed small foci of intra-abdominal free air compatible with bowel perforation. This was presumably in the region of the gastric antrum which was surrounded by some inflammatory changes and mildly enlarged lymph nodes. Underlying ulcer, gastritis or neoplasm wearing the differential. After consultation I decided to wait and not immediately operate on the patient given his normal hemodynamics and laboratory values. We were, however, sufficiently concerned for the patient's abdominal pain. On hospital day #2, the patient showed ongoing abdominal pain and elevation in white blood cell count to 17 and tachycardia. For this reason, patient underwent laparoscopic repair of perforated gastric ulcer with Sukh patch and abdominal lavage on 04/07/2016. Upper GI neg 04/11/16. Drain d/c'd 04/13/16. L hand cellulitis, improved with antimicrobial treatment and time in hospital. D/c'd home 04/20/16. Readmitted 05/02/16 with anemia. EGD x 2 showed ulcer dz and no obvious evidence for malignancy. D/c home 05/10; readmitted on 05/14 and d/c 05/16; fainted on way to see us in the office on 05/25, but neg ED w/u; readmitted for a third time since that operation on 07/15/16 for gastric outlet obstruction and GI bleeding. Ongoing issues with weight loss. Could not tolerate much oral intake. 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 EGD 07/25/16 showed small opening that made attempt at stenting possible. Started TPN 07/27/16. S/p endoscopic duodenal stent placement 07/28/16. Dx lap 08/01/16 showed no obvious evidence of widespread metastasis. Few areas biopsied and path showed no malignancy in the biopsied areas or in the cytology sample sent. Patient s/p 12 cycles of FOLFOX ending 12/01/16 (no Avastin; Her2 negative tumor). Patient developed loculated pneumothorax and empyema that was treated with Heimlich valve placement ( pathology from pleural fluid negative for malignant cells). On 01/10/17, s/p laparoscopic exploration with laparoscopic wedge liver biopsy x2 as well as falciform ligament biopsy, with open subtotal gastrectomy, celiac artery lymph node dissection, hepatic artery lymph node biopsy, celiac artery lymph node biopsy, splenic artery lymph node biopsy, abdominal lavage, omentectomy, and lysis of adhesions were performed with findings of malignancy in distal stomach. Comorbidities: 1. Gastric malignancy, s/p neoadjuvant chemotherapy. On 01/10/17, s/p laparoscopic exploration with laparoscopic wedge liver biopsy x2 as well as falciform ligament biopsy, with open subtotal gastrectomy, celiac artery lymph node dissection, hepatic artery lymph node biopsy, celiac artery lymph node biopsy, splenic artery lymph node biopsy, abdominal lavage, omentectomy, and lysis of adhesions were performed with findings of malignancy in distal stomach. 2. Bilateral knee and other joint pain 3. Hypertension 4. Gastric perforation 04/21 5. Laparoscopic repair for gastric perforation 04/21 Final Path: MICROSCOPIC DIAGNOSIS: A-Falciform ligament, biopsy: -- Fibroadipose and fibrocollagenous tissue showing focal foreign body giant cell reaction to plant material. -- There is no evidence of malignancy. B-Liver wedge biopsy segment #2: -- Segment of liver showing an intracapsular fragment of plant material with foreign body giant cell reaction and fibrosis. -- Chronic inflammation of adjacent portal zones, mild. -- There is no evidence of malignancy. C-Liver wedge biopsy segment #4B: -- Focal capsular foreign body giant cell reaction to plant material. -- There is no evidence of malignancy. D-Falciform ligament #2: -- Fibrocollagenous and adipose tissue showing vascular congestion. -- There is no evidence of malignancy. E-Hepatic artery lymph node: -- Reactive follicular hyperplasia and mild sinus histiocytosis. -- There is no evidence of malignancy. F-Stomach and duodenum, partial resection: -- Adenocarcinoma, moderately-differentiated, intestinal type, diffusely involving the lesser curvature, posterior wall and greater curvature of the pylorus. -- Maximum tumor diameter 4.0 cm. -- Carcinoma penetrates through the muscularis propria into greater curvature and lesser curvature adipose tissue and subserosa. -- There is no involvement of visceral serosa by tumor. -- Lymph-vascular or perineural invasion is not identified. -- Proximal gastric, distal duodenal and radial margins of resection are clear of tumor. -- Metastatic carcinoma is present in lymph nodes in the greater curvature, adjacent to the tumor (4/24). -- Chronic gastric, mild and patchy involving oxyntic and antral mucosa. G-Omentum: -- No significant histopathological abnormalities are identified. -- There is no evidence of malignancy. H-Celiac artery lymph node: -- One lymph node shows reactive follicular hyperplasia. -- There is no evidence of malignancy. I-Splenic artery lymph node: -- One lymph node shows reactive follicular hyperplasia. -- There is no evidence of malignancy. J-Omentum #2: -- A focus of embedded plant material with foreign body giant cell reaction. -- Moderate vascular congestion. -- There is no evidence of malignancy. SYNOPTIC CASE SUMMARY: SPECIMEN: Gastric antrum and proximal duodenum. PROCEDURE: Partial gastrectomy, distal. TUMOR SITE: Lesser curvature and adjacent upper anterior pylorus; posterior wall and greater curvature of pylorus (partially circumferential). TUMOR SIZE: Greatest dimension 4.0 cm (x 3.0 x 1.4 cm). HISTOLOGIC TYPE: Adenocarcinoma, intestinal type. HISTOLOGIC GRADE: Grade 2, moderately-differentiated. MICROSCOPIC EXTENT TUMOR: Tumor invades through muscularis propria into subserosa and adipose tissue of the greater and lesser curvatures. There is no visceral peritoneal involvement by carcinoma. MARGINS: All margins are uninvolved carcinoma. Distance of carcinoma from closest margin: Carcinoma is 5.0 cm from the distal duodenal margin. Proximal gastric and radial (omental) margins: Uninvolved by carcinoma. TREATMENT EFFECT: No definite response identified (grade 3, poor to no response ). LYMPH-VASCULAR INVASION: Not identified PERINEURAL INVASION: Not identified. REGIONAL LYMPH NODES: Number of lymph nodes examined: 27. Number of lymph nodes involved: 4 (four greater curvature lymph nodes are involved by metastatic carcinoma - 03/02). ADDITIONAL PATHOLOGIC FINDINGS: -- Chronic gastritis, mild and patchy. -- Extensive ulceration of tumor surface. -- Focal acute ulceration of duodenal mucosa. -- Foreign body giant cell reaction to subserosal suture beneath the attached omentum at the anterior lesser curvature. -- Focal foreign body giant cell reaction to vegetable matter in biopsies of falciform ligament and liver capsule. ANCILLARY STUDIES: HER2 immunoperoxidase stain pending. Giemsa stain for H. pylori pending. COMMENT: Finding are discussed with Dr. Helen Braswell on 01/12/2017. HER2 by IHC is pending at [facility] and a separate supplemental report of that result will follow. Additionally, a Giemsa stain is pending on the uninvolved gastric mucosa and results will be reported separately. This patient had a previous gastric antral biopsy showing poorly-differentiated adenocarcinoma, intestinal type ([facility] case no. [id number]; 07/19/2016). Comorbidities: 1. Gastric malignancy, s/p neoadjuvant chemotherapy. On 01/10/17, s/p laparoscopic exploration with laparoscopic wedge liver biopsy x2 as well as falciform ligament biopsy, with open subtotal gastrectomy, celiac artery lymph node dissection, hepatic artery lymph node biopsy, celiac artery lymph node biopsy, splenic artery lymph node biopsy, abdominal lavage, omentectomy, and lysis of adhesions were performed with findings of malignancy in distal stomach. 2. Bilateral knee and other joint pain 3. Hypertension 4. Gastric perforation 04/21 5. Laparoscopic repair for gastric perforation 04/21 Subjective: No major events or complaints; no abd pain and under control with medications; no n/v/d; no sob or cp; + flatus; + BM; + activity Objective: Vitals: See below Exam: GENERAL: On exam, the patient was sitting in a chair and appeared to be comfortable and in no acute distress. ABDOMEN: Soft, nontender and nondistended. Incisions are clean, dry and intact without any evidence of erythema, edema, discharge, or hernia. Anson removed in the office. There are no peritoneal signs or guarding. SKIN: Skin appears to be pink and feels warm to touch. NEUROLOGIC: Patient is awake, alert, and follows commands appropriately. Exam/Review of Systems Vital Signs Vitals Vital Signs Date Time Temp Pulse Resp B/P Pulse Ox O2 Delivery O2 Flow Rate FiO2 02/01/17 09:52 98.1 81 16 141/75 99 Room Air HELEN BRASWELL M.D. Feb 01, 2017 17:19
== END 2017-02-01 16:54 | disposition home or self-care (01) ==
LOC: HPC 09:46
PROVIDERS: ATTEND Transplant Surgery
DX: C16.9 Malignant neoplasm of stomach, unspecified (principal); M25.561 Pain in right knee; M25.562 Pain in left knee; I10 Essential (primary) hypertension
CPT/HCPCS: G0463

== ENCOUNTER 2017-02-07 14:15 | Outpatient (CLI) | payer OTHER ==
[~2017-02-07] VITALS: Ht 167.6 cm; Wt 69.5 kg
[~2017-02-07 14:15] MED LIST changes: -HYDR-906 PO; -ONDA8TAB83 PO
[2017-02-07 14:18] VITALS: BP 136/73; PULSE 79; RESP 16; Ht 167.6 cm; Wt 69.5 kg
--- NOTE | 2017-02-07 15:08 | PN ---
Date/Time of Note Date/Time of Note DATE: 02/07/17 TIME: 15:04 Outpatient Progress Note Chief Complaint Gastric carcinoma/hypertension/rheumatoid arthritis/PUD HPI Gastric carcinoma/patient has gastric carcinoma, patient was recently admitted with a perforation, patient had surgery, patient doing very well, no nausea vomiting, no hematemesis melena, no abdominal pain, Hypertension/no headache or dizziness or lightheadedness, Rheumatoid arthritis/joint pain and stiffness, bilateral knee discomfort, PUD/no nausea vomiting, patient ran out of the medication, Review of Systems Const: No Fever, no chills, no Wt. loss, no Fatigue, normal appetite, no diaphoresis. Eyes: No pain, no discharge, no redness, no visual change, no foreign body. ENT: No pain, no bleeding, no congestion, no sore throat, no dysphagia, no discharge or rhinitis. Lymph: No adenopathy, no tender nodes, no lymphedema. Resp: No SOB, no cough, no sputum, no wheezing, no chest pain. CV: No chest pain, no palpitaions, no GAMEZ, no PND, no edema. GI: Normal appetite, no pain status post abdominal surgery, scar clean, no redness bleeding or discharge,, no nausea, no vomiting, no diarrhea, no blood, no constipation. : No frequency, no urgency, no dysuria, no hematuria, no flank pain, no discharge, no bleeding. Musc: No bone/joint pain, no back pain, no neck pain, no knee pain, no restricted ROM. Skin: No rash, no skin lesions, no erythema, no laceration, no bruising, no pruritus. Neuro: No MCHUGH, no dizziness, no syncope, no seizure, no focal-weakness. Endo: No polyuria, no polydypsia, no dry-skin, no temp-intolerance. Psych: No hallucinations, no depression, no anxiety, no suicidal ideation. Ext: No edema, no pain, no ulcer, no weakness. Physical Exam Vital Signs Date Time Temp Pulse Resp B/P Pulse Ox O2 Delivery O2 Flow Rate FiO2 02/07/17 14:18 98.4 79 16 136/73 98 Room Air General Appearance: A 66 year-old male who appears well-developed, well- nourished, in no acute distress. HEENT: Head normocephalic, atraumatic. Pupils equal, round, reactive to light and accommodate. Sclerae are no jaundice. Nasal turbinates pink without erythema or nasal discharge. Mucous membranes pink and moist without lesions. Oropharynx clear without any exudate or discharge. NECK: Supple. Trachea midline, No thyromegaly, No cervical lymphadenopathy, No mass, No carotid bruits, No JVD, Carotid pulses 2+ bilaterally. PULMONARY: Clear to auscultaion bilaterally, No retractions, Chest expansion symmetric bilaterally, no rales, no ronchi, no dulness on percussion. CARDIAC: Normal SI and S2, Regular rate and rythm, no murmur, gallop, or rub. GASTROINTESTINAL: Abdomen is soft, non-tender status post abdominal surgery, scar clean, no redness, no bleeding or discharge,, Non Rigid, No distention, Positive bowel sounds x4 quadrants, Liver normal. SKIN: Warm, dry, no rash, no bruise, no echmosis. EXTREMITIES: Bilateral lower extremities normal, no edema, no phlabitus, pulse palpable, no contracture. MUSCULOSKELETAL: Spine Normal, Non-tender, Normal range of motion, No swelling, no deformity, no clubbing, or cyanosis, the patient has no edema to bilateral lower extremities, dorsalis pedis pulses palpable bilaterally. NEUROLOGIC: The patient is awake, alert, oriented, responding to yes/no questions appropriately, moving all extremities, cranial nerve intact, normal strenght, normal power, normal coordination, normal gait. Allergies Coded Allergies: No Known Allergy (Unverified , 01/10/17) PMH No change Social Hx No change Family Hx No change Patient History: Patient reports no known family medical history. Assessment/Plan Impression Gastric carcinoma/hypertension/rheumatoid arthritis/PUD Plan Continue all medication, patient has ran out of pantoprazole, will refill it, will give her 30 day supply, Patient education done, following the surgery and primary care physician, Watch for anemia, and fatigue, discussed with the patient, patient to follow with the oncologist in few days, Medications Home Meds Active Scripts Bisacodyl* (Dulcolax*) 5 Mg Tablet., 10 MG PO DAILY Y for CONSTIPATION for 10 Days, #10 TAB Prov:DREAD CRISOSTOMO 01/14/17 Docusate Sodium (Dok) 100 Mg Capsule, 100 MG PO BID for 30 Days, CAP Prov:SADEORA,DREAD 01/14/17 Pantoprazole* (Pantoprazole*) 40 Mg Tablet.dr, 40 MG PO DAILY@06 for 30 Days Prov:DREAD CRISOSTOMO 01/14/17 Discontinued Reported Medications Ondansetron Hcl* (Ondansetron Hcl*) 8 Mg Tablet, 8 MG PO Q6H Y for NAUSEA AND OR VOMITING, TAB 01/09/17 Discontinued Scripts Hydrocodone/Acetaminophen (Dougherty 5-325 Tablet) 1 Each Tablet, 1 EACH PO Q6, #20 TAB Prov:DREAD CRISOSTOMO 01/14/17 SHADI AUGUSTINE MD Feb 07, 2017 15:08
== END 2017-02-08 13:17 | disposition home or self-care (01) ==
LOC: DCC 14:15
PROVIDERS: ATTEND Internal Medicine
DX: C16.9 Malignant neoplasm of stomach, unspecified (principal); I10 Essential (primary) hypertension; M06.9 Rheumatoid arthritis, unspecified; K27.9 Peptic ulcer, site unspecified, unspecified as acute or chronic, without hemorrhage or perforation

== ENCOUNTER 2018-05-08 13:50 | Inpatient (IN) | END 2018-05-29 16:05 | disposition home or self-care (01) | DRG 871 ==

== ENCOUNTER 2018-11-24 12:00 | Emergency (ER) | payer OTHER ==
[~2018-11-24] VITALS: Ht 175.3 cm; Wt 78.0 kg
[~2018-11-24 12:00] MED LIST changes: +AMIO200T4 PO; +AMOX1TAB10 PO; -BISA-57 PO; -DOCU-216 PO; +HYDR-3601 PO; -PANT40TA4 PO
[2018-11-24 12:03] VITALS: BP 167/75; PULSE 104; RESP 18; Ht 175.3 cm; Wt 78.0 kg
[2018-11-24] MEDS ORDERED: HYDR-4011 PO (12:42)
--- NOTE | 2018-11-24 12:45 | ERD ---
ER Documentation Chief Complaint Chief Complaint pt is here for dressing change, home health RN hasn't been there for 2 wks HPI 67-year-old male presents status post cholangitis, cholecystectomy and bile drain placed approximately 3 weeks ago here. He was finished with antibiotics. He was getting dressing changes for his drain at home health but apparently that has been discontinued. Is here for dressing change for his drainage catheter in his right upper quadrant. Patient denies any fevers, vomiting, and drain appears to be patent. Patient has a history of gastric carcinoma and also possible new pancreatic mass. Is currently asymptomatic except for intermittent pain. Is requesting refill of [place] for his pain.. He does have appointment with his oncologist and primary care doctor. Discharge plans to have drain removed after contrast study approximately 6 weeks after placement. ROS All systems reviewed and are negative except as per history of present illness. Medications Home Meds Active Scripts Hydrocodone/Acetaminophen ([place] 5-325 Tablet) 1 Each Tablet, 1 TAB PO Q6H PRN for PAIN, #12 TAB Prov:MALCOLM MOTTA MD 11/24/18 Amiodarone Hcl* (Amiodarone Hcl*) 200 Mg Tablet, 200 MG PO BID for 30 Days, #60 TAB Prov:NATHAN CAICEDO 11/05/18 Hydrocodone Bit-Acetaminophen (Hydrocodone Bit-APAP) 5-325MG Tablet, 1 TAB PO Q6H PRN for MODERATE PAIN LEVEL 4-6 for 5 Days, #10 TAB Prov:NATHAN CAICEDO 11/05/18 Amoxicillin/Potassium Clav (Amox-Clav 875-125 mg Tablet) 875-125 mg Tab, 1 TAB PO BID for 7 Days, #14 TAB Prov:NATHAN CAICEDO 11/05/18 Allergies Allergies: Coded Allergies: No Known Allergy (Unverified , 05/08/18) PMhx/Soc History of Surgery: Yes (ABDOMINAL SURGERY DUE TO CANCER) Anesthesia Reaction: No Hx Neurological Disorder: No Hx Respiratory Disorders: No Hx Cardiac Disorders: No Hx Psychiatric Problems: No Hx Miscellaneous Medical Probl: Yes (gastric CA, HTN, Afib, RA, peptic ulcer disease, h/o gastroctomy and gastro) Hx Alcohol Use: No Hx Substance Use: No Hx Tobacco Use: No FmHx Family History: No diabetes, No coronary disease, No other Physical Exam Vitals Vital Signs Date Temp Pulse Resp B/P (MAP) Pulse Ox O2 O2 Flow FiO2 Time Delivery Rate 11/24/18 99.0 104 18 167/75 99 12:03 (105) Physical Exam Const: No acute distress Head: Atraumatic Eyes: Normal Conjunctiva ENT: Normal External Ears, Nose and Mouth. Neck: Full range of motion. No meningismus. Resp: Clear to auscultation bilaterally Cardio: Regular rate and rhythm, no murmurs Abd: Soft, non tender, non distended. Normal bowel sounds. Biliary drain in place. No erythema, warmth, masses. Skin: No petechiae or rashes Back: No midline or flank tenderness Ext: No cyanosis, or edema Neur: Awake and alert Psych: Normal Mood and Affect Procedures/MDM Dressings were changed on right biliary drain. Patient presents with dressing change request without signs or symptoms of obstruction, sepsis, surgical abdomen. Discharged home with scheduled follow-up with primary care and pathology. We reviewed recommendations for drain removal approximately 1 additional month. Patient understands and is aware of his outpatient follow-up. He is advised to return for fevers, vomiting, new worsening symptoms otherwise with oncology and primary care doctor as scheduled. The patient was stable with no new complaints during the ER course. Clinically, there is no current evidence to suggest meningitis, sepsis, acute abdomen, pneumonia, stroke, acute coronary syndrome, pulmonary embolism, aortic dissection or any other emergent condition appearing to require further evaluation or hospitalization. Patient counseled regarding my diagnostic impression and care plan. Prior to discharge all questions answered. Pt agrees with treatment plan and understands strict return precautions. Pt is instructed to follow up with primary care provider within 24- 48 hours. Precautionary instructions provided including instructions to return to the ER if not improving or for any worsening or changing symptoms or con cerns. Departure Diagnosis: Primary Impression: Tumor Additional Impressions: Encounter for change of dressing Gastric adenocarcinoma Condition: Stable Patient Instructions: Dressing Change Additional Instructions: Va al truong doctor/ specialista para mas evaluacon en el proximo semana. posiblemente necesita autorizado de truong doctor primario para specialista. Regresa para fiebre, o mas o nueva simptomas. cheque para sacra ubo 1 mes mas. MALCOLM MOTTA MD Nov 24, 2018 12:45
== END 2018-11-24 13:18 | disposition home or self-care (01) ==
LOC: FTE 12:00
DX: C16.9 Malignant neoplasm of stomach, unspecified (principal); I10 Essential (primary) hypertension; Z48.01 Encounter for change or removal of surgical wound dressing
CPT/HCPCS: 99283